=== PATIENT | male | born 1955 | race Hispanic/Latino ===

== ENCOUNTER → 2025-01-30 11:10 | Outpatient (REF) | payer OTHER, SELFPAY | LOC: RAD 11:10 | PROVIDERS: ATTENDING PHYSICIAN Thoracic Surgery (Cardiothoracic Vascular Surgery) | DX: I35.0 Nonrheumatic aortic (valve) stenosis (principal); I25.10 Atherosclerotic heart disease of native coronary artery without angina pectoris; Z01.810 Encounter for preprocedural cardiovascular examination | CPT/HCPCS: 75573; Q9967 ==

== ENCOUNTER 2025-02-04 05:09 | Inpatient (IN) | payer OTHER, SELFPAY ==
[2025-01-28 09:00] VITALS: BMI 32.2
[2025-01-28 09:19] LABS: Hematocrit 44.8 % (39.0-52.0); Hemoglobin 15.1 g/dL (13.0-18.0); Mean Corp Hgb Conc. 33.7 g/dL (33.0-37.0); Mean Corpuscular Volume 90.7 fL (80.0-94.0); Nucleated Red Blood Cells % 0 % (-); Platelet Count 231 10^3/uL (130-400); Red Cell Dist. Width 13.1 % (11.5-14.5)
[2025-01-28 09:25] LABS: Urine Character Clear (Clear)
[2025-01-28 09:30] LABS: INR 0.94; PT 12.9 Sec (11.4-14.6)
[2025-01-28 09:36] LABS: Urine White Cell 0-2 /HPF (0-5)
--- NOTE | 2025-01-28 09:40 | CM ---
Chart reviewed. Met with the patient and his in a PAT. Reviewed preoperative and postoperative instructions and restrictions, along with showering guidelines. Gave patient 2 soaps. Patient is independent of ADLS, lives in a 2nd floor
apartment, [address], 0 DME. Patient is outside of driving radius for CT Transitional RN. Patient will need VN set up at discharge. Plan is for the patient to return home with VN.
[2025-01-28 10:32] LABS: Glycohemoglobin (HgbA1c) 6.0 % (4.0-5.6)
[2025-01-28 11:08] LABS: ALT (SGPT) 33 U/L (0-50); AST (SGOT) 30 U/L (17-59); Albumin 4.7 g/dl (3.5-5.0); Alkaline Phosphatase 109 U/L (38-126); Blood Urea Nitrogen 14 mg/dl (9-20); Calcium 8.9 mg/dl (8.4-10.2); Carbon Dioxide 22 mmol/L (22-30); Chloride 107 mmol/L (98-107); Estimated Creatinine Clearance 78 ml/min; Glucose 227 mg/dl (70-99); Potassium 4.4 mmol/L (3.5-5.1); Sodium 137 mmol/L (135-145); Total Protein 8.1 g/dl (6.3-8.2); eGFR > 60.00
[2025-02-04] VITALS (24 sets, daily range): BP systolic 74–154; BP diastolic 49–93; PULSE 94; BMI 31.7
[2025-02-04] MEDS: LOPRESSOR 25 MG PO (05:46)
[2025-02-04] MEDS: BACTROBAN 2% OINTMENT 1 APPLIC NASAL ×2 (05:46→19:55)
[2025-02-04] MEDS: PROTONIX 40 MG PO (05:46)
[2025-02-04] MEDS: MAGNESIUM OXIDE 500 MG PO (05:46)
--- NOTE | 2025-02-04 06:00 | PTCARENOTE ---
Pt admitted room 2261. Pt confirmed 2 CHG showers at home and NPO status. Weight and VS obtained. ABO drawn and sent. Admission questions completed. Home medications confirmed. Pre op medications administered. Pt oriented to room. Family at the
bedside. Call doshi within reach.
--- NOTE | 2025-02-04 06:03 | W.CVOR.SURPR ---
CVOR Surgeon Immed Pre Op
-
I have examined this patient prior to performance of the scheduled procedure.
The patient's condition is unchanged from the time of the dictated/written History and
Physical and the patient is able to undergo the scheduled procedure.
AVR + CABG + JUAN E
[2025-02-04 07:20] LABS: Urine Character Clear (Clear)
[2025-02-04 07:40] LABS: B.E. - POC -0.5 mmol/L; Glucose - POC 100 mg/dl (70-99); HCO3 - POC 24 mmol/L (21-28); Hematocrit - POC 38 % PCV (42-52); Hemodilution- POC No; Hemoglobin Calculated - POC 13.0; Ionized Calcium - POC 1.19 mmol/L (1.15-1.33); Lactate - POC 0.99 mmol/L (0.36-0.75); O2 Saturation %Calculated-POC 100.0 % (94-98); PCO2 - POC 39 mmHg (35-48); PO2 - POC 360 mmHg (83-108); POC Comment PRE; Potassium - POC 3.9 mmol/L (3.5-5.1); Sodium - POC 142 mmol/L (136-145); Specimen Type - POC Arterial; pH - POC 7.40 (7.35-7.45)
[2025-02-04 07:53] LABS: Urine Squamous Cell 0-2 /LPF (Few)
[2025-02-04 07:55] LABS: Urine Red Blood Cell 0-2 /HPF (0-2); Urine White Cell 0-2 /HPF (0-5)
[2025-02-04 10:05] LABS: B.E. - POC 1.9 mmol/L; Glucose - POC 142 mg/dl (70-99); HCO3 - POC 26 mmol/L (21-28); Hematocrit - POC 29 % PCV (42-52); Hemodilution- POC Yes; Hemoglobin Calculated - POC 9.9; Ionized Calcium - POC 0.95 mmol/L (1.15-1.33); Lactate - POC 2.31 mmol/L (0.36-0.75); O2 Saturation %Calculated-POC 100.0 % (94-98); PCO2 - POC 38 mmHg (35-48); PO2 - POC 353 mmHg (83-108); POC Comment CPB; Potassium - POC 5.8 mmol/L (3.5-5.1); Sodium - POC 140 mmol/L (136-145); Specimen Type - POC Arterial; pH - POC 7.45 (7.35-7.45)
[2025-02-04 10:39] LABS: B.E. - POC 0.9 mmol/L; Glucose - POC 242 mg/dl (70-99); HCO3 - POC 25 mmol/L (21-28); Hematocrit - POC 31 % PCV (42-52); Hemodilution- POC Yes; Hemoglobin Calculated - POC 10.7; Ionized Calcium - POC 1.07 mmol/L (1.15-1.33); Lactate - POC 2.10 mmol/L (0.36-0.75); O2 Saturation %Calculated-POC 99.8 % (94-98); PCO2 - POC 34 mmHg (35-48); PO2 - POC 198 mmHg (83-108); POC Comment CPB; Potassium - POC 5.8 mmol/L (3.5-5.1); Sodium - POC 139 mmol/L (136-145); Specimen Type - POC Arterial; pH - POC 7.46 (7.35-7.45)
--- NOTE | 2025-02-04 10:42 | CM ---
pt in OR today, cm following
[2025-02-04 11:08] LABS: B.E. - POC -2.8 mmol/L; Glucose - POC 208 mg/dl (70-99); HCO3 - POC 23 mmol/L (21-28); Hematocrit - POC 29 % PCV (42-52); Hemodilution- POC Yes; Hemoglobin Calculated - POC 10.0; Ionized Calcium - POC 3.97 mmol/L (1.15-1.33); Lactate - POC 2.96 mmol/L (0.36-0.75); O2 Saturation %Calculated-POC 99.7 % (94-98); PCO2 - POC 44 mmHg (35-48); PO2 - POC 213 mmHg (83-108); POC Comment WARM; Potassium - POC 4.9 mmol/L (3.5-5.1); Sodium - POC 141 mmol/L (136-145); Specimen Type - POC Arterial; pH - POC 7.33 (7.35-7.45)
[2025-02-04 11:22] LABS: B.E. - POC -3.4 mmol/L; Glucose - POC 142 mg/dl (70-99); HCO3 - POC 22 mmol/L (21-28); Hematocrit - POC 33 % PCV (42-52); Hemodilution- POC Yes; Hemoglobin Calculated - POC 11.1; Ionized Calcium - POC 1.29 mmol/L (1.15-1.33); Lactate - POC 3.74 mmol/L (0.36-0.75); O2 Saturation %Calculated-POC 100.0 % (94-98); PCO2 - POC 38 mmHg (35-48); PO2 - POC 442 mmHg (83-108); POC Comment POST; Potassium - POC 3.9 mmol/L (3.5-5.1); Sodium - POC 140 mmol/L (136-145); Specimen Type - POC Arterial; pH - POC 7.36 (7.35-7.45)
--- NOTE | 2025-02-04 11:36 | CON.INTV ---
Consultation
Consultation Request
Date/Time Consultation Requested: 02/04/2025 - 1127
Date/Time Consultation Performed: 02/04/2025 - 1134
Requesting Provider: Dede Ledezma NP
Performing Provider: Dr. Harper
Reason for Consultation: s/p CABG + AVR
Medical History
-
Chief Complaint: CABG + SAVR
History of Present Illness:
69-year-old M former tobacco smoker with PMHx of CAD, severe AV stenosis, GERD, chronic back pain, lumbosacral spondylosis, HLD and migraine headaches who p/w elective CABG + AVR. Pt known to CT surgery service, with last visit on 01/13/[address] Mcdaniel. Pt has known single-vessel CAD and . He has intermittent chest tightness, and feels that his symptoms are worsening compared to about 1 year ago. His echo performed at OSH in September 2024 showed a heavily calcified aortic valve with
LVEF 85%, with reduced AV leaflet excursion, and aortic root calcification. There was no significant AI. Stress test in November 2024 showed abnormal myocardial perfusion suggesting ischemia to the basal lateral wall with EF 75%. LHC on 12/12/2024
showed disease in the LAD although iFR was negative at 0.91. He has significant disease of his mid-circ/OM1 with suspected 99% occlusion. Biological AVR and CABG were reviewed in detail, and the pt agreed to surgical intervention. Today, he
underwent CABG x1, SAVR and JUAN-exclusion with a 40mm clip. He tolerated the procedure well, and was TRX to CVICU post-operatively for further care. Mobile Home Set Up Person service now consulted for additional recommendations/management.
When I saw the pt, he was intubated on SIMV at 12/500/40%/5, PS 5, with PIP [id number], VTe 525mL and breathing at 12 breaths/minute. HR 81, BP via NIBP: 83/49, SpO2 99%, PAP: 28/12, and CO/CI 4.26/2.17, respectively. He has two mediastinal chest
tubes in place. He is currently on insulin gtt at 2.3 units/hr, levophed at 1mcg/min, dobutamine at 2 mcg/kg/min and sedated with precedex at 0.3 mcg/kg/hr.
PMHx: CAD, severe aortic stenosis, lung nodule, vertigo, GERD, chronic back pain, lumbosacral spondylosis with radiculopathy, severe aortic root dilation, HLD, vitamin D deficiency, ophthalmoplegic neuropathy, migraine headaches
PSHx: Lumbar epidural injections, L4-5 discectomy, L4-5 laminectomy with nerve root decompression, cataract removal
Past Medical History
Past Medical History: Other (Above as per HPI)
Past Surgical History: Other (Above as per HPI)
Social History
Tobacco: Former Smoker (Quit >45 years ago)
Alcohol: Occasional (Rare use)
Drug: None
Employment: Employed ([employer])
Family History
Family History: Unable to Obtain
Allergies / Home Medications
Allergies
Allergy/AdvReac Type Severity Reaction Status Date / Time
No Known Allergies Allergy Unverified 01/24/25 12:21
Home Medications
�Medication �Instructions �Recorded �Confirmed �Last Taken �Type
amoxicillin 875 mg tablet 500 mg PO TID 01/24/25 02/04/25 02/02/25 20:00 History
aspirin 81 mg tablet,delayed 81 mg PO DAILY 01/24/25 02/04/25 02/03/25 08:00 History
release
metoprolol succinate 25 mg 25 mg PO DAILY 01/24/25 02/04/25 02/03/25 08:00 History
tablet,extended release 24 hr
omeprazole 20 mg capsule,delayed 20 mg PO DAILY 01/24/25 02/04/25 02/02/25 08:00 History
release
rosuvastatin 40 mg tablet (Crestor) 40 mg PO HS 01/24/25 02/04/25 02/02/25 08:00 History
fluticasone propionate 50 50 mcg intranasal DAILY 02/04/25 02/04/25 02/02/25 08:00 History
mcg/actuation nasal
spray,suspension
ibuprofen 100 mg tablet 100 mg PO PRN PRN pain 02/04/25 02/04/25 02/02/25 20:00 History
Review of Systems
-
Unable to Obtain full review of systems at this time due to: Patient Intubation
Vitals / Labs / Diagnostic Testing
Vital Signs
Temp Pulse Resp BP Pulse Ox
97.6 F 81 18 148/93 98
02/04/25 05:44 02/04/25 05:44 02/04/25 05:44 02/04/25 05:17 02/04/25 05:44
Diagnostic Testing:
Physical Exam
-
HEENT: Normocephalic, Anicteric and Other (ETT in place)
Cardiovascular: S1/S2 and Peripheral Edema (negative)
Respiratory: Wheeze (negative), Rales (negative), Rhonchi (negative), Non-Labored Respirations and Other (mechanical breath sounds heard bilaterally)
GI: Soft, Non Distended, Non Tender and Normal Bowel Sounds
Neurology: Tremors (negative) and Other (sedated)
Skin: Warm and Dry
General: Respiratory Distress (negative), Comfortable, Fever (negative) and Chills (negative)
Assessment
-
Assessment: 69-year-old M with PMHx of CAD, severe AV stenosis, GERD, chronic back pain, lumbosacral spondylosis, HLD and migraine headaches who p/w elective CABG + AVR. Pt known to CT surgery service, with last visit on 01/13/[address] Mcdaniel.
Pt has known single-vessel CAD and . He has intermittent chest tightness, and feels that his symptoms are worsening compared to about 1 year ago. His echo performed at OSH in September 2024 showed a heavily calcified aortic valve with LVEF 85%, with
reduced AV leaflet excursion, and aortic root calcification. There was no significant AI. Stress test in November 2024 showed abnormal myocardial perfusion suggesting ischemia to the basal lateral wall with EF 75%. C on 12/12/2024 showed disease in
the LAD although iFR was negative at 0.91. He has significant disease of his mid-circ/OM1 with suspected 99% occlusion. Biological AVR and CABG were reviewed in detail, and the pt agreed to surgical intervention. On 02/04/2025, he underwent CABG
x1, SAVR and JUAN-exclusion with a 40mm clip. He tolerated the procedure well, and was TRX to CVICU post-operatively for further care. Mobile Home Set Up Person service now consulted for additional recommendations/management.
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
Impression:
#Single-vessel CAD involving mid-LCx/OM1 s/p CABG x1 (Ao to RSVG to OM) - POD#0
#Severe aortic valve stenosis s/p bioprosthetic AVR (29mm) - POD#0
#Anemia
#Transaminitis (AST mildly elevated)
#Lactic acidosis
#Bicuspid aortic valve morphology, type I with fused right left coronary cusp
#Positional vertigo
#GERD
#HLD
#HTN
#Former tobacco smoker (quit >45 years ago)
Plan:
Ventilator settings reviewed
FiO2 will be weaned to maintain SpO2 >90-94%
Minute ventilation will be adjusted
Arterial blood gases will be monitored
Spontaneous breathing trial will be attempted with hopeful extubation after anesthesia/sedation wear off
prn nebulized bronchodilators - not currently bronchospastic
Pulmonary artery catheter parameters will be followed
Pressors/antihypertensive/inotropes/diuretics will be provided as needed
Maintain MAP>65
Replete electrolytes with K>4, Mg>2
Monitor chest tube output (mediastinal chest tubes x2)
Monitor hemoglobin
Monitor platelet count and coags
Transfuse blood products as needed to maintain Hb>7g/dL, plt>50k (given post-operative status)
CT surgery managing chest tubes
Monitor blood sugar to maintain euglycemia with goal BG 110-140
Insulin drip per protocol
Aspiration precautions
VAP prevention protocol
DVT prophylaxis
Early nutrition
Early mobilization
Critical care statement: A total of 46 minutes of critical care time was provided for this patient today. This includes management of ventilator, spontaneous breathing trial, arterial blood gases, pressors, of unstable vital signs, evaluation of the
patient at bedside, reviewing the patient's pertinent medical records including radiographs, microbiology, laboratory evaluations, and discussion with primary team and critical care nursing.
[2025-02-04 11:52] LABS: B.E. - POC -3.5 mmol/L; Glucose - POC 124 mg/dl (70-99); HCO3 - POC 23 mmol/L (21-28); Hematocrit - POC 32 % PCV (42-52); Hemodilution- POC Yes; Hemoglobin Calculated - POC 11.0; Ionized Calcium - POC 1.28 mmol/L (1.15-1.33); Lactate - POC 4.09 mmol/L (0.36-0.75); O2 Saturation %Calculated-POC 59.5 % (94-98); PCO2 - POC 43 mmHg (35-48); PO2 - POC 34 mmHg (83-108); Potassium - POC 3.9 mmol/L (3.5-5.1); Sodium - POC 140 mmol/L (136-145); Specimen Type - POC Venous; pH - POC 7.32 (7.35-7.45)
--- NOTE | 2025-02-04 11:54 | W.PN.CT.SURG ---
CT Surgery Operative Note
-
CARDIAC SURGERY OPERATIVE REPORT
Preoperative Diagnosis: Aortic valve stenosis with single-vessel coronary disease, symptomatic
Postoperative Diagnosis: Same
Procedure(s) Performed:
1. Sternotomy with standard aortic and right atrial cannulation
2. Coronary artery bypass grafting x 1 (Ao to RSVG to OM)
3. Surgical aortic valve replacement [29 mm bioprosthesis]
4. Left atrial appendage exclusion [40 mm clip]
5. Trans-esophageal echocardiography
6. Placement temporary ventricular pacing wires
Date of Surgery: 02/04/2025
Comorbidities:
1. Severe aortic valve stenosis, symptomatic
2. Bicuspid aortic valve morphology, type I with fused right left coronary cusp
3. Single-vessel coronary disease with essentially a MIXING PICKER TENDER of the large OM branch with left to left and right to left collateralization
4. Positional vertigo
5. Exertional and resting angina
6. GERD
7. Hyperlipidemia
8. Hypertension
Attending Surgeon: Gal Mcdaniel MD, MS
Assistants: Josselyn Chinchilla PA-C (present and necessary to post production assistant, retraction, suction, exposure, suture management, and wound closure under my direction), Asif Quintana, PGY 2 (Cardiac Surgery Resident), SHIRIN Enrique (endo radial artery evaluation
and endo vein harvest)
Anesthesiology: Hari Aparicio MD and Razia Chand CRNA
Scrub and Circulating RNs: Sammy Card RN, Janki Burroughs RN
Tobacco Cloth Reclaimer: James Dent CCP
Anesthesia: GETA
EBL: per perfusion records
Products: None
CPB Time: 98 minutes
Aortic Cross Clamp Time: 77 minutes
Indication(s) for Procedures: This is a 69-year-old male who is relatively active who has been experiencing intermittent chest tightness. He has known severe aortic valve stenosis and also had single-vessel coronary artery disease with a perfusion
deficit on imaging. Given his young age, bicuspid morphology and single-vessel coronary disease, he was offered surgical revascularization as well as surgical aortic valve replacement.
Aortic Valve Description: Type I morphology, fused left right. Heavy calcified commissure at the right non-, heavy calcification with infiltration into the annulus particular towards the noncoronary cusp. Left and right coronary ostia normal
anatomic positions.
Conduit(s) Quality:
RSVG -excellent/good quality, uniform mildly thickened no varicosities
Target(s) Quality:
OM -shows the largest OM branch heading towards the apex, there is good filling of the branching vessels supplying the lateral wall/test dosing antegrade had a mean flow 45 cc a minute at a pressure of 80 mmHg.
Findings: LVEF on intraoperative FRANCHESKA was 60% and 60% post procedure with no new regional wall motion abnormality. There was no prosthetic PVL or AI. Mean gradient across the prosthesis was 3 mmHg. Following bypass grafting, test dose cardioplegia
was given down the distal and confirmed patency and hemostasis. His aortic valve was heavily calcified particularly towards the nondominant coronary cusp at the left noncommissure with large bulky calcification at the right noncommissure. He had a
type I Hellen classification bicuspid aortic valve with fusion of the left and right coronary cusp. His left and right coronary ostia within normal anatomic positions. The valve was debrided and a total of 14 nonpledgeted 2 Ethibond sutures were
placed from LVOT through annulus through sewing cuff of the three 9 mm bioprosthesis. This was then secured to place using core knots. His left atrial appendage was verified to be free of any thrombus or debris preoperatively and found to be
totally occlusive postoperatively with a 40 mm clip. After taken off the clamp and coming off cardiopulmonary bypass the mean gradient across the valve was only 3 and no paravalvular leak was seen. He had a mild to moderate degree of mitral valve
insufficiency while ventricularly paced and after coming off cardiopulmonary bypass. This later improved to trace to mild which was his baseline. He was placed preemptively on a low-dose amount of dobutamine, did not require any blood products,
and he returned to his eagle sinus rhythm after short period of ventricular pacing. Of note, we did do a small cut down on the radial artery and placed the endoscope inside the radial artery had diffuse calcification running up the anterior wall
and so I felt it was not suitable for bypass grafting. This I was also instrumented in the past for his left heart cath. His left radial artery had likely an incomplete arch and so we did not use that either.
Specimen(s): Aortic valve leaflet.
Prosthesis:
1. 40 mm clip AtriCure, serial #[id number]
2. 29 mm [employer]'s Resilia aortic valve bioprosthesis, serial #[id number]
Description of Procedure: The patient was taken to the operating room. Their identity and procedure to be performed were verified and they were positioned supine on the operating table. Induction via general anesthesia with endotracheal intubation
was performed and central venous access and arterial monitoring were inserted. A preoperative transesophageal echocardiogram was performed. The patient was then prepped and draped from chin to feet in a sterile fashion. A preoperative time-out was
performed with all members of the team present. We started with Endo access to the right radial artery. It was found to be not usable and so this was aborted, the incision was closed, the arm was then retucked. A midline chest incision was
performed along with median sternotomy. Simultaneous endoscopic access of the right lower extremity for saphenous vein harvest was obtained along with administration of an initial 5,000 units of IV heparin. The innominate vein was isolated. Full
heparinization was given (a total of 55,000 units). I created a pericardial well. The aortic cannulation site was chosen where it was soft, pliable, and free of calcium. Cannulation was performed with an arterial cannula in the ascending aorta and a
triple-stage venous cannula through the right atrial appendage. The arterial cannula line had an appropriate bounce and correlating pressures with test dosing. Next, a root vent/antegrade cannula was inserted into the ascending aorta. The ACT was
confirmed to be over 400 and retrograde autologous priming was performed before commencing cardiopulmonary bypass. The pulmonary artery was away from the aorta to facilitate a clamp site. The aortic cross-clamp was placed after decreasing
the flow on the bypass and mean arterial pressure. A total of 1.2L initial dose of antegrade Del-Nido cardioplegia solution was given and planned for re-dosing every 75 minutes as necessary. There was rapid electro-mechanical arrest of the heart at
300 cc of cardioplegia. The left ventricle was observed for distention on echocardiogram and manual palpation. Cold slush was placed into a sponge and topically on the RV while we systemically cooled to 34 degrees centigrade. Once the heart was
fully rested he was rotated medially and the left atrial appendage was clipped flush to the base with a 40 mm device.
I positioned the heart to expose the OM target. A chinik blade was used to expose the coronary and perform the arteriotomy. Coronary Bueno scissors were used to enlarge the incision. The saphenous vein was trimmed and beveled to an appropriate size.
The distal anastomosis was performed using 7-0 prolene in an end-to-side fashion. Antegrade cardioplegia was administered into the graft. Appropriate hemostasis and flow were confirmed. The graft was measured for length to the aorta and cut.
Carbon dioxide was used to flood the field. I turned my attention to the aortic valve and manually identified the location of the right coronary take off. An aortotomy was made approximately 1.5cm above the sinotubular junction. The location of both
left and right coronary vessels were visualized in the root. The aortic valve was inspected and found to be heavily calcified. The leaflets were excised and sent for pathological assessment. The annulus was debrided of any calcium. The root and left
ventricular outflow tract were thoroughly irrigated to remove any debris. A total of 14, non-pledgeted 2-0 ethibond annular sutures were placed [id number] circumferentially. These were brought through the sewing cuff of the prosthetic valve which
as then parachuted into place. The left and right coronary ostia were visualized and were unobstructed by the valve. A Cor-Knot device was used to secure the annular sutures. The valve was inspected and was well seated. The aortotomy was
approximated with 4-0 prolene in two layers. I created one aortotomy using a #11 blade then a 4.0mm aortic punch above the aortic suture line. The proximal anastomoses were created in an end-to-side fashion using 6-0 prolene. At the same time, we
started to re-warm to 36.5 degrees centigrade. Temproary bipolar ventricular pacing wires were placed on the base of the right ventricle. The patient was placed in a Trendelenburg position and flows on bypass were lowered. The aortic cross clamp was
removed and flows were slowly brought back up. The aortotomy appeared hemostatic after placement of a few pledgeted 4-0 Prolene repair sutures. The distal and proximal anastomoses appeared hemostatic. De-airing maneuvers were performed.
Transesophageal echocardiography revealed no paravalvular leak and appropriate prosthetic function. Once de-airing was satisfactory, the left ventricular and root vents were removed. After verifying acceptable parameters, we initiated weaning from
cardiopulmonary bypass. Once we were off cardiopulmonary bypass, the venous cannulas was clamped and removed. A test dose of protamine was administered and the patient was monitored for any adverse reaction before resuming protamine. Once half of
the protamine dose was delivered, pump suckers were turned off and the systolic blood pressure was lowered for aortic decannulation. The aortic cannula was removed and pursestrings were tied down. All cannulation sites were oversewn with a 4-0
prolene. The aortic line, proximal, and distal coronary anastomoses were hemostatic. The mammary bed was inspected and hemostasis was confirmed. Once the mediastinum was hemostatic, two 24Fr Jeanmarie drains were placed within the pericardium. The
sternum was approximated with 4#7 single and 3 #8 double stainless steel wires. Fascia was approximated with #1 vicryl suture. The subcutaneous, dermis and epidermis were closed in layers in a running fashion. The skin wound was cleansed and
dressed.
All instrument, sponge, and needle counts were confirmed to be correct x 2 at the end of the operation. The patient was transferred to the cardiac intensive care unit in critical but stable condition.
I, Dr. Gal Mcdaniel, was present, scrubbed for, and performed all critical elements of this procedure.
Gal Mcdaniel MD, MS
Cardiothoracic Surgeon
[facility]
This operative dictation was created using the [employer] dictation system. Please excuse any grammatical, typographical, or 'sound alike' errors
--- NOTE | 2025-02-04 12:15 | PTCARENOTE ---
recieved pt from CVOR at 1215 s/p CABG AVR. pt laying flat in bed, intubated sedated pupils equal and reactive, non responsive to stimuli so far. NSR hr 80s-90s. BP 100/50 - goal systolics 90-[address] Mcdaniel. PAps 20s/10s, CVP ~ 10. C.I 2.07, SVR
1900. V wire present to box at 60,10. no pacing noted so far. Lungs clear, diminished on ventilator SIMV 12, 500, 5/5 40 percent pulling good volumes.2 mediastinal chest tubes to wall suction no air leak, tidaling or crepitus noted. suctioned for
thin clear secretions. bs hypoactive. veras present draining clear yellow urine. Sternum GRINDING OPERATOR w glue, R radial GRINDING OPERATOR w glue, R SVG inscision and puncture GRINDING OPERATOR with glue, covered with sheyal wrap . R IJ cordis with swan at 45 L radial a line, R ac PIV all
central lines zeroed, flushed, maintained. recieved on insulin per protocol, levo at 2, dobut at 3.
[2025-02-04 12:24] LABS: Glucose - Point of Care 116 mg/dl (70-99)
[2025-02-04] MEDS: LR 250 ML IV ×2 (12:27→13:43)
[2025-02-04] MEDS: ANCEF 10 IV ×2 (12:41→12:42)
[2025-02-04] MEDS: NSS 500 IV (12:42)
[2025-02-04] MEDS: NOVOLOG FLEXPEN SC ×2 (12:43→15:04)
[2025-02-04 12:45] LABS: B.E. -4.3 mmol/L; HCO3 21.6 mmol/L (21-28); O2 Saturation % 98.6 % (94-98); PCO2 42 mmHg (35-48); PO2 126 mmHg (83-108); Potassium 3.8 mMOL/L (3.5-5.1); Sodium 136 mMOL/L (136-145)
[2025-02-04 12:49] LABS: Hematocrit 34.1 % (39.0-52.0); Hemoglobin 11.5 g/dL (13.0-18.0); Platelet Count 162 10^3/uL (130-400)
[2025-02-04] MEDS: KCL 50 IV (12:51)
[2025-02-04 12:55] LABS: INR 1.38; PT 17.2 Sec (11.4-14.6)
[2025-02-04 12:56] LABS: APTT 37.8 Sec (23.4-35.0)
[2025-02-04 12:58] LABS: Blood Urea Nitrogen 16 mg/dl (9-20); Estimated Creatinine Clearance 78 ml/min; Glucose 114 mg/dl (70-99); Magnesium 2.9 mg/dl (1.6-2.3)
[2025-02-04 13:08] LABS: Glucose - Point of Care 150 mg/dl (70-99)
--- NOTE | 2025-02-04 13:23 | PTCARENOTE ---
CTs oozy with 105 out the first hour, ctnps aware, will give ddavp. 250 fluid given. ACT done 136. dobut lowered to 2 per [address]NP
[2025-02-04] MEDS: DDAVP 56 MCG IV (13:49)
[2025-02-04 13:57] LABS: Glucose - Point of Care 116 mg/dl (70-99)
[2025-02-04 14:30] LABS: ACT+ - POC 501 Seconds (82-134)
[2025-02-04 14:30] LABS: ACT+ - POC 562 Seconds (82-134)
[2025-02-04 14:30] LABS: ACT+ - POC 815 Seconds (82-134)
[2025-02-04 14:30] LABS: ACT+ - POC 120 Seconds (82-134)
[2025-02-04 14:30] LABS: ACT+ - POC 720 Seconds (82-134)
[2025-02-04 14:30] LABS: ACT+ - POC 131 Seconds (82-134)
[2025-02-04 15:00] LABS: Glucose - Point of Care 118 mg/dl (70-99)
[2025-02-04] MEDS: PACERONE PO (15:04)
[2025-02-04] MEDS: NEURONTIN PO (15:04)
--- NOTE | 2025-02-04 15:34 | PTCARENOTE ---
pt awake and following commands, CPAP trial initiated at 1530. Pt c/o pain, offirmev ordered and given
[2025-02-04] MEDS: DILAUDID 0.5 MG IV (15:35)
[2025-02-04 16:04] LABS: Glucose - Point of Care 103 mg/dl (70-99)
[2025-02-04 16:38] LABS: B.E. -1.7 mmol/L; HCO3 23.7 mmol/L (21-28); O2 Saturation % 98.8 % (94-98); PCO2 42 mmHg (35-48); PO2 125 mmHg (83-108); Potassium 4.8 mMOL/L (3.5-5.1); Sodium 135 mMOL/L (136-145)
[2025-02-04 16:38] LABS: Hematocrit 32.2 % (39.0-52.0); Hemoglobin 11.2 g/dL (13.0-18.0); Platelet Count 154 10^3/uL (130-400)
[2025-02-04] MEDS: CALCIUM GLUCONATE 100 IV (16:45)
--- NOTE | 2025-02-04 16:56 | PTCARENOTE ---
patient recieved a bolus of 400 mcgs of precedex IV. CTNPs and Pharmacy notified, Monitored the patient closely for hemodynamic instability. BP did reach 200s systolically and came back down over the course of ~ 10 minutes to 110s. Labs drawn and
sent. pt will stay intubated for now on CPAP settings per ctnp
[2025-02-04 16:58] LABS: ALT (SGPT) 36 U/L (0-50); AST (SGOT) 80 U/L (17-59); Albumin 3.2 g/dl (3.5-5.0); Alkaline Phosphatase 71 U/L (38-126); Total Protein 5.7 g/dl (6.3-8.2)
[2025-02-04 17:02] LABS: Glucose - Point of Care 105 mg/dl (70-99)
[2025-02-04] MEDS: ANCEF 5 IV (17:29)
[2025-02-04] MEDS: OFIRMEV 100 IV (17:41)
[2025-02-04] MEDS: ASPIRIN 300 MG RECTAL (17:48)
[2025-02-04 18:01] LABS: B.E. -3.7 mmol/L; HCO3 22.1 mmol/L (21-28); O2 Saturation % 99.2 % (94-98); PCO2 42 mmHg (35-48); PO2 136 mmHg (83-108); Potassium 4.6 mMOL/L (3.5-5.1); Sodium 136 mMOL/L (136-145)
--- NOTE | 2025-02-04 18:12 | PTCARENOTE ---
patient awake and following commands, CPAP gas sent and looks good , CTNP says good to extubate.
--- NOTE | 2025-02-04 18:20 | PTCARENOTE ---
pt extubated to 6L NC, satting 98 %. able to state name and birthday. family at bedside
[2025-02-04 18:59] LABS: Glucose - Point of Care 100 mg/dl (70-99)
[2025-02-04 19:28] LABS: ACT-LR - POC 136 Seconds (116-155)
[2025-02-04] MEDS: SENOKOT-S 1 TABLET PO (19:55)
--- NOTE | 2025-02-04 20:00 | PTCARENOTE ---
assumed care of patient at 1900. Patient alert and oriented, denies pain, on 1 of levo, and 3 dobutamine. NSR on monitor, +pulses, lungs clear and diminished bilateral, CT dressing clean dry and intact. +BS, veras draining cleat yellow.
[2025-02-04] MEDS: SODIUM BICARBONATE 50 MEQ IV (20:46)
[2025-02-04 20:59] LABS: Glucose - Point of Care 121 mg/dl (70-99)
[2025-02-04] MEDS: PACERONE 200 MG PO (22:18)
[2025-02-04] MEDS: TYLENOL 1000 MG PO (22:18)
[2025-02-04] MEDS: CRESTOR 40 MG PO (22:19)
[2025-02-04 23:03] LABS: Glucose - Point of Care 101 mg/dl (70-99)
[2025-02-04] MEDS: ROXICODONE 5 MG PO (23:08)
[2025-02-04] MEDS: DILAUDID 0.25 MG IV (23:20)
[2025-02-05] VITALS (39 sets, daily range): BP systolic 93–132; BP diastolic 55–86; PULSE 103; O2SAT 95–98; BMI 32.6
[2025-02-05 01:02] LABS: Glucose - Point of Care 106 mg/dl (70-99)
--- NOTE | 2025-02-05 01:10 | PTCARENOTE ---
patient resting comfortably, oral care completed, and CHG bath done. Patient able to turn self in bed.pain controlled with PRN medication. VSS
[2025-02-05] MEDS: ANCEF 5 IV ×2 (02:01→09:59)
[2025-02-05] MEDS: FLEXERIL 5 MG PO ×2 (02:06→15:45)
[2025-02-05] MEDS: ZOFRAN 4 MG IV (02:11)
[2025-02-05] MEDS: DILAUDID 0.25 MG IV ×4 (02:17→14:06)
[2025-02-05 03:03] LABS: Glucose - Point of Care 109 mg/dl (70-99)
[2025-02-05 03:34] LABS: Hematocrit 29.6 % (39.0-52.0); Hemoglobin 9.9 g/dL (13.0-18.0); Mean Corp Hgb Conc. 33.4 g/dL (33.0-37.0); Mean Corpuscular Volume 90.2 fL (80.0-94.0); Platelet Count 137 10^3/uL (130-400); Red Cell Dist. Width 13.1 % (11.5-14.5)
[2025-02-05 03:59] LABS: Blood Urea Nitrogen 17 mg/dl (9-20); Calcium 7.9 mg/dl (8.4-10.2); Carbon Dioxide 27 mmol/L (22-30); Chloride 108 mmol/L (98-107); Estimated Creatinine Clearance 78 ml/min; Glucose 116 mg/dl (70-99); Magnesium 2.2 mg/dl (1.6-2.3); Potassium 4.2 mmol/L (3.5-5.1); Sodium 137 mmol/L (135-145); eGFR > 60.00
--- NOTE | 2025-02-05 04:15 | PTCARENOTE ---
Patient VSS, NSR, Dubutimine @2.5 +pulses, lungs clear diminished. Pain controlled with PRN medication and repositioning.
[2025-02-05] MEDS: ROXICODONE 5 MG PO ×4 (04:44→23:08)
--- NOTE | 2025-02-05 04:44 | W.PN.CT ---
Today's Communication / Plan
-
Plan:
-No major issues overnight. Hemodynamically and neurologically intact
-Successfully extubated yesterday 02/04 @ 1800
-Weaned off Levophed overnight, Dobutamine weaned from 3 to 1.5 overnight, on insulin gtt per protocol
-Last CI 2.49, MVO2 66.1, U/O since OR 1200 mL
-Monitor chest tube drainage: 2meds 230/540
-BB on hold given postop hypotension and need for Dobutamine
-Cont. current meds (ASA, Plavix, Crestor, Amiodarone; Lopressor on hold)
-D/C a-line and swan when able to wean off inotropic support
-Keep veras for accurate I/O's
-Telemetry phase today when of dobutamine and insulin gtt
-Maintain cordis
-Maintain temporary PW (will likely pull tomorrow)
-Encourage use of IS
-Wean off of O2 as tolerated
-OOB into chair
Assessment / Plan
-
Assessment:
-S/P Sternotomy/CABG x 1 (Ao to RSVG to OM)/Aortic valve replacement [29 mm bioprosthesis]/JUAN clip (40 mm), by Dr. Mcdaniel, 02/04/25 pod#1
-Severe aortic valve stenosis, symptomatic
-Mild MR
-Mild TR
-LVEF 60-65%
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
-Single-vessel coronary disease with essentially a BARBER SHOP MANAGER of the large OM branch with left to left and right to left collateralization
-Positional vertigo
-Exertional and resting angina
-GERD
-Hyperlipidemia
-Hypertension
-Class 1 obesity (BMI 31.6)
-Prediabetes (hgA1C 6.0)
-Former tobacco use (quit 45 yrs ago)
-Ophthalmoplegic neuropathy
-Migraine headaches
-Vitamin D deficiency
-Chronic back pain
-Lumbosacral spondylosis with radiculopathy
-S/P L4/L5 discectomy and laminectomy
-S/P Lumbar epidural injections
-S/P Cataract surgery
-Acute postop blood loss/Anemia (stable without transfusion)
-Acute postop coagulopathy (DDAVP)
-Acute postop atelectasis
-Acute postop hypovolemia with subsequent hypervolemia
Discussed patient care with: Cardiology, Nursing, Respiratory Therapy, Pharmacy and Care Team
Subjective
Procedure
S/P Sternotomy/CABG x 1 (Ao to RSVG to OM)/Aortic valve replacement [29 mm bioprosthesis]/JUAN clip (40 mm), by Dr. Mcdaniel, 02/04/25
-
Date of Service: February 05, 2025
Pt c/o pleuritic chest pain, otherwise feels well
Objective Data
-
Lab Results
02/05/25 03:20
02/05/25 03:20
PT 17.2 Sec (11.4-14.6) H 02/04/25 12:25
INR 1.38 02/04/25 12:25
APTT 37.8 Sec (23.4-35.0) H 02/04/25 12:25
Vital Signs
Vital Signs
Temp Pulse Resp BP Pulse Ox
99.2 F 103 18 98/60 96
02/05/25 04:00 02/05/25 04:27 02/05/25 04:27 02/05/25 04:00 02/05/25 04:27
CT Intake/Output/Weight
02/04/25 02/04/25 02/05/25
06:59 18:59 06:59
Intake Total 501.2 / 1277.1 775.9 / 1277.1
Output Total 840 / 1685 845 / 1685
Balance -338.8 / -407.9 -69.1 / -407.9
SaO2: 96 (RA)
Physical Exam
-
General: Awake, Oriented and AOx3
Cardiovascular: Regular rate & rhythm, No Murmurs, No Rub and No Gallop
Respiratory: Decreased Breath Sounds (at bases, otherwise feels well)
Sternum: Stable
Incision: Clean, Dry, Intact and Dressing Intact
Extremities: Other (+trace edema)
Data Reviewed
-
Lab Results: Results Reviewed
Medications: Active Meds Reviewed
Chest X-Ray: Report Reviewed and Image Reviewed
ECG: Report Reviewed and Image Reviewed
[2025-02-05 04:54] LABS: Glucose - Point of Care 93 mg/dl (70-99)
[2025-02-05] MEDS: TYLENOL 1000 MG PO ×3 (05:32→21:13)
--- NOTE | 2025-02-05 05:54 | PTCARENOTE ---
patient Alert and Oriented, +pulses, +BS, pain at sternal site 8-10 control with PRN medication. He is on 2 L NC O2 Saturation 95%, normal Sinus rhythm, , Dobutamine at 1.5, V Wires- pacer setting 60/10/0.8, CT X 2, veras and Cordis . Insulin
gtt, check q 2hrs.
[2025-02-05 06:46] LABS: Glucose - Point of Care 128 mg/dl (70-99)
--- NOTE | 2025-02-05 08:00 | PTCARENOTE ---
pt received from previous RN, oriented, in bed. SR/ST on the monitor, HR 90-100s. V wire in place, VVI 60/10. SBP 120-130s. PAP 20s/10s. CVP ~4. CI>2, Dobutamine gtt running as ordered. palpable pulses. pt on 2LNC, 94-95% POX. lungs diminished. IS
encouraged, 750-1000ml. CTx2, no air leak or crepitus noted. pt abdomen s/n, denies n/v. clears tolerated well. hypoactive BS. Riley in place, clear yellow urine. sternal incision KIANA, approximated. chest tube site c/d/i. 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 RLE
FRIDA bandage in place. RIJ cordis/swan maintained. L radial Nina flushed, zeroed, and calibrated. PIV. insulin gtt running as ordered. see worklist for VS, I&O, and assessment.
--- NOTE | 2025-02-05 08:23 | W.PN.INTV ---
Today's Communication / Plan
Recommendations
Up OOB as tolerated
Continue insulin drip per protocol, goal BG 110�140
Wean down supplemental O2 flow rate, maintaining SpO2 >90-94%
Encourage incentive spirometer
Pain control
Cardiac rehab
Electronics Recycler services will continue to follow along until patient transferred to CVICU�telemetry status. Once downgraded then we will sign off at that time.
Assessment
-
Assessment: 69-year-old M with PMHx of CAD, severe AV stenosis, GERD, chronic back pain, lumbosacral spondylosis, HLD and migraine headaches who p/w elective CABG + AVR. Pt known to CT surgery service, with last visit on 01/13/[address] Mcdaniel.
Pt has known single-vessel CAD and . He has intermittent chest tightness, and feels that his symptoms are worsening compared to about 1 year ago. His echo performed at OSH in September 2024 showed a heavily calcified aortic valve with LVEF 85%, with
reduced AV leaflet excursion, and aortic root calcification. There was no significant AI. Stress test in November 2024 showed abnormal myocardial perfusion suggesting ischemia to the basal lateral wall with EF 75%. LHC on 12/12/2024 showed disease in
the LAD although iFR was negative at 0.91. He has significant disease of his mid-circ/OM1 with suspected 99% occlusion. Biological AVR and CABG were reviewed in detail, and the pt agreed to surgical intervention. On 02/04/2025, he underwent CABG
x1, SAVR and JUAN-exclusion with a 40mm clip. He tolerated the procedure well, and was TRX to CVICU post-operatively for further care. Electronics Recycler service now consulted for additional recommendations/management.
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
Impression:
#Single-vessel CAD involving mid-LCx/OM1 s/p CABG x1 (Ao to RSVG to OM) - POD#1
#Severe aortic valve stenosis s/p bioprosthetic AVR (29mm) - POD#1
#Anemia
#Transaminitis (AST mildly elevated)
#Lactic acidosis
#Bicuspid aortic valve morphology, type I with fused right left coronary cusp
#Positional vertigo
#GERD
#HLD
#HTN
#Former tobacco smoker (quit >45 years ago)
Plan:
Successfully extubated yesterday, and is currently saturating 97% on 2 L/min nasal cannula
Continue weaning down supplemental O2 flow rate well-maintaining SpO2 >90-94%
prn nebulized bronchodilators - not currently bronchospastic
IS encouraged q1hr while awake
Pulmonary artery catheter parameters will be followed
Pressors/antihypertensive/inotropes/diuretics will be provided as needed
Maintain MAP>65
Replete electrolytes with K>4, Mg>2
Monitor chest tube output (mediastinal chest tubes x2)
Monitor hemoglobin
Monitor platelet count and coags
Transfuse blood products as needed to maintain Hb>7g/dL, plt>50k (given post-operative status)
CT surgery managing chest tubes
Monitor blood sugar to maintain euglycemia with goal BG 110-140
Insulin drip per protocol
Aspiration precautions
DVT prophylaxis
Early nutrition
Early mobilization
Electronics Recycler services will continue to follow along until patient transferred to CVICU�telemetry status. Once downgraded then we will sign off at that time.
Critical care statement: A total of 41 minutes of critical care time was provided for this patient today. This includes management of ventilator, spontaneous breathing trial, arterial blood gases, pressors, of unstable vital signs, evaluation of the
patient at bedside, reviewing the patient's pertinent medical records including radiographs, microbiology, laboratory evaluations, and discussion with primary team and critical care nursing.
Subjective Dataa
Subjective Data
Date of Service:
Date of Service: February 05, 2025
Chief Complaint: Electronics Recycler Follow Up
Subjective:
Patient seen and evaluated this morning. Afebrile overnight. Currently on 1.3 units/h of insulin. Also on dobutamine drip at 1 mcg/kg/min. Cardene drip + Levophed drip off since yesterday. Currently on 2 L/min nasal cannula saturating 97%,
heart rate 98 and BP 120/68.
Review of Systems
General: Other (Negative unless mentioned above)
Objective Data
Data Reviewed
Vital Signs / I&O / Oxygen:
Vital Signs
Temp Pulse Resp BP Pulse Ox
99.3 F 100 19 132/72 95
02/05/25 09:00 02/05/25 09:00 02/05/25 09:00 02/05/25 09:00 02/05/25 09:00
Intake and Output
02/04/25 02/05/25 02/06/25
06:59 06:59 06:59
Intake Total 1463.6 / 1463.6 50.4 / 50.4
Output Total 1770 / 1770 150 / 150
Balance -306.4 / -306.4 -99.6 / -99.6
SaO2 [SIMV] 97
SaO2 95
Nasal Cannula flow liters per 2
minute
Physical Exam
General: Respiratory Distress (negative), Comfortable, Chills (negative) and Sweats (negative)
HEENT: Normocephalic and Anicteric
Cardiovascular: S1-S2 and Peripheral Edema (negative)
Respiratory: Wheeze (negative), Crackles (negative), Rhonchi (negative), Non-Labored Respirations, Stridor (negative) and Chest Tube (Mediastinal chest tubes x 2)
GI: Soft, Non Distended, Non Tender and Normal Bowel Sounds
Neurology: Awake, Alert and Tremors (negative)
Skin: Warm, Dry, Cyanosis (negative) and Jaundice (negative)
Labs/Micro/Reports
Lab Data
02/05/25 03:20
02/05/25 03:20
Laboratory Results
02/04/25 02/04/25 02/04/25
12:25 12:29 16:28
PT 17.2 H
INR 1.38
APTT 37.8 H
pH 7.32 L 7.36
pCO2 42 42
pO2 126 H 125 H
HCO3 21.6 23.7
O2 Delivery Level
02/04/25
17:55
PT
INR
APTT
pH 7.33 L
pCO2 42
pO2 136 H
HCO3 22.1
O2 Delivery Level
[2025-02-05] MEDS: NOVOLOG FLEXPEN SC ×2 (08:36→13:31)
[2025-02-05] MEDS: LIDOCAINE 4% PATCH 1 PATCH TOPICAL (08:46)
[2025-02-05] MEDS: PROTONIX 40 MG PO (08:47)
[2025-02-05] MEDS: LOW STRENGTH ASPIRIN 81 MG PO (08:47)
[2025-02-05] MEDS: PLAVIX 75 MG PO (08:47)
[2025-02-05] MEDS: PACERONE 200 MG PO ×3 (08:47→21:13)
[2025-02-05] MEDS: MAGNESIUM OXIDE 500 MG PO ×2 (08:47→21:12)
[2025-02-05] MEDS: SENOKOT-S 1 TABLET PO ×2 (08:47→21:12)
[2025-02-05] MEDS: BACTROBAN 2% OINTMENT 1 APPLIC NASAL ×2 (08:48→21:12)
[2025-02-05 08:59] LABS: Glucose - Point of Care 101 mg/dl (70-99)
[2025-02-05] MEDS: NSS IV (09:41)
--- NOTE | 2025-02-05 10:26 | W.PN.CD ---
Today's Communication / Plan
-
postop care
continue
Impression / Plan
-
69-year-old man with aortic valve stenosis and single-vessel coronary artery disease who presents for elective CABG and aortic valve replacement.
Severe aortic stenosis, s/p AVR
- S/P Sternotomy/CABG x 1 (Ao to RSVG to OM)/Aortic valve replacement [29 mm bioprosthesis]/JUAN clip (40 mm), by Dr. Mcdaniel, 02/04/25
- Doing well after surgery.
- Continue routine postoperative care
Coronary artery disease s/p CABG
- CABG x 1 (Ao to RSVG to OM)
- Continue aspirin, clopidogrel, and statin
- Add beta-mars once off of dobutamine
LUE swelling
- Not painful. Continue to monitor.
Physical Exam
Vital Signs/Labs
Vital Signs
Temp Pulse Resp BP Pulse Ox
99.3 F 100 19 132/72 95
02/05/25 09:00 02/05/25 09:00 02/05/25 09:00 02/05/25 09:00 02/05/25 09:00
02/04/25 02/05/25 02/06/25
06:59 06:59 06:59
Actual Weight 191 lb 5.78 oz 197 lb 5.019 oz
02/05/25 03:20
02/05/25 03:20
PT 17.2 Sec (11.4-14.6) H 02/04/25 12:25
INR 1.38 02/04/25 12:25
APTT 37.8 Sec (23.4-35.0) H 02/04/25 12:25
Magnesium 2.2 mg/dl (1.6-2.3) 02/05/25 03:20
Physical Exam
Constitutional: No acute distress and Comfortable
Cardiovascular: Rhythm & rate is regular, Pedal edema is absent, S1S2 is normal and Murmur/rub/gallop absent
Respiratory: Respiratory effort normal and Lungs clear to auscul.
Neuro/Psych: AO x 3
Other: Other (sternal wound well-approximated, no drainage)
Data Reviewed
-
Date of Service: February 05, 2025
Medical Decision Making: Reviewed Test Results, Independent Historian Assessment, Test Interpretation and Review of Case with other Provider
EKG: Tracing Personally Visualized and interpreted
Echo: Report Reviewed by me
Labs: Labs Reviewed by me
--- NOTE | 2025-02-05 10:45 | PTCARENOTE ---
Riley care provided, Riley dc'd as ordered. Dobutamine titrated off as ordered @0900, PRODUCTION SUPERVISOR Dede aware of hemodynamics. L radial Nina dc'd as ordered, dressing c/d/i. BILL blunt dc'd as ordered, BILL blandon redressed, c/d/i. pt OOB to chair w/ assist.
[2025-02-05 11:06] LABS: Glucose - Point of Care 112 mg/dl (70-99)
--- NOTE | 2025-02-05 11:23 | W.PN.ANS.POP ---
Anesthesia Post Operative
- Anesthesia Post Op Note
Vital Signs Stable-See Nursing Note: Yes
Airway Patent: Yes
Adequate Pain Control: Yes
Change in Mental Status: No
Current Postoperative Nausea & Vomiting: No
Anesthesia Complications: No
General Anesthetic Recall: No
Unplanned Admission: No
Post Op Hydration Adequate: Yes
- -
Pt OOB to chair, resting comfortably with no anesthesia c/o at time of post op visit. VSS
--- NOTE | 2025-02-05 11:52 | CM ---
CM following for DC planning needs.
Patient is POD#1.
Attempted to meet w/ patient at bedside but he was sleeping soundly. Did not disturb.
Reviewed initial assessment. Patient resides w/ spouse in a 2nd fl[address]. apartment w/ [address]. Functionally, patient is indep. at baseline w/ ADLs, mobility without the use of any assisted device.
Antic. DC plan is for home with [facility] Transitional [facility] RN.
CM to follow.
--- NOTE | 2025-02-05 12:15 | PTCARENOTE ---
pt VSS, IS encouraged. Roxicodone 5mg PO given for pain.
[2025-02-05 13:09] LABS: Glucose - Point of Care 94 mg/dl (70-99)
[2025-02-05] MEDS: FERRLECIT 110 MG IV (13:09)
[2025-02-05] MEDS: ALBUMIN 5% 250 IV ×2 (14:06→16:11)
[2025-02-05 15:20] LABS: Glucose - Point of Care 135 mg/dl (70-99)
[2025-02-05] MEDS: NEURONTIN 100 MG PO ×2 (15:46→21:13)
--- NOTE | 2025-02-05 16:15 | PTCARENOTE ---
pt VSS, pt states no urge to void, bladder scanned for 53ml, SPRING REPAIRER HELPER HAND Dede aware. RLE FRIDA bandage removed. pt attempted to sit on BSC, +flatus, no BM. pt placed back to bed. Albumin 250ml given x2 as ordered per SPRING REPAIRER HELPER HAND. PRN Flexeril given for pain. pt c/o
swelling in LUE, no pain, SPRING REPAIRER HELPER HAND Dede aware.
[2025-02-05 17:13] LABS: Glucose - Point of Care 96 mg/dl (70-99)
[2025-02-05] MEDS: NOVOLOG FLEXPEN 4 UNITS SC (17:32)
--- NOTE | 2025-02-05 17:52 | PTCARENOTE ---
CT dressing changed. pt bladder scanned for 162ml, no urge to void. BURLAP ROLL COVERER Dede aware. pt OOB to chair w/ assist. tolerated well. son at bedside.
[2025-02-05] MEDS: NOVOLIN R INSULIN INFUSION 100 IV (18:10)
[2025-02-05 18:58] LABS: Glucose - Point of Care 153 mg/dl (70-99)
--- NOTE | 2025-02-05 20:00 | PTCARENOTE ---
assumed care of patient @ 1900. received pt sitting in chair, Aox3. Severe c/o pain, .5 Dilaudid given. SR/ST low 100s on monitor. BP stable. +pulses, trace edema throughout. V wire present to box on VVI 60,10,.8. lungs clear, diminished on 3L
satting mid 90s. 2 mediastinal chest tubes to wall suction with serosang drainage. Belly soft, nontender, passing gas. poor appetite reported by patient. Riley pulled earlier, DTV, will attempt to void soon. Sternum, radial, R groin and R knee sites
CDI KIANA closed with surgical glue. R IJ cordis and L AC PIV both patent. On insulin per protocol.
[2025-02-05] MEDS: DILAUDID 0.5 MG IV (20:06)
[2025-02-05 21:11] LABS: Glucose - Point of Care 122 mg/dl (70-99)
[2025-02-05] MEDS: CRESTOR 40 MG PO (21:12)
[2025-02-05] MEDS: REMOVE LIDOCAINE PATCH 1 PATCH REMOVE (21:14)
[2025-02-05] MEDS: MAGNESIUM SULFATE 100 IV (23:49)
[2025-02-05] MEDS: LOPRESSOR 2.5 MG IV (23:49)
[2025-02-06] VITALS (18 sets, daily range): BP systolic 95–129; BP diastolic 63–83; BMI 33.5
--- NOTE | 2025-02-06 | PTCARENOTE ---
pt was able to void clear silvia urine, resting comfortably no change in assessment .
--- NOTE | 2025-02-06 00:30 | PTCARENOTE ---
pt with run of SVT - 2.5 lopressor and 1g mag ordered and given .
[2025-02-06 01:03] LABS: Glucose - Point of Care 110 mg/dl (70-99)
[2025-02-06 02:01] LABS: Glucose - Point of Care 108 mg/dl (70-99)
[2025-02-06 02:20] LABS: Hematocrit 25.1 % (39.0-52.0); Hemoglobin 8.7 g/dL (13.0-18.0); Mean Corp Hgb Conc. 34.7 g/dL (33.0-37.0); Mean Corpuscular Volume 90.6 fL (80.0-94.0); Platelet Count 147 10^3/uL (130-400); Red Cell Dist. Width 13.6 % (11.5-14.5)
--- NOTE | 2025-02-06 02:43 | W.PN.CT ---
Today's Communication / Plan
-
-no overnight issues.
-brief run of AT s/p IV Lopressor and MG, remains in NSR
-de-lined
-UOP 550/630, veras DCd
-CT: 2meds 115/325 out in 12/24 hrs
-BB on hold given postop hypotension and need for Dobutamine. possibly restart this morning
-Cont. current meds (amio, ASA, Crestor, Plavix)
-Maintain cordis
-Maintain temporary PW (will likely pull tomorrow)
-Encourage use of IS
-Wean off of O2 as tolerated
-OOB into chair
Assessment / Plan
-
Assessment:
-S/P Sternotomy/CABG x 1 (Ao to RSVG to OM)/Aortic valve replacement [29 mm bioprosthesis]/JUAN clip (40 mm), by Dr. Mcdaniel, 02/04/25 pod#2
-Severe aortic valve stenosis, symptomatic
-Mild MR
-Mild TR
-LVEF 60-65%
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
-Positional vertigo
-Exertional and resting angina
-GERD
-Hyperlipidemia
-Hypertension
-Class 1 obesity (BMI 31.6)
-Prediabetes (hgA1C 6.0)
-Former tobacco use (quit 45 yrs ago)
-Ophthalmoplegic neuropathy
-Migraine headaches
-Vitamin D deficiency
-Chronic back pain
-Lumbosacral spondylosis with radiculopathy
-S/P L4/L5 discectomy and laminectomy
-S/P Lumbar epidural injections
-S/P Cataract surgery
-Acute postop blood loss/Anemia (stable without transfusion)
-Acute postop coagulopathy (DDAVP)
-Acute postop atelectasis
-Acute postop hypovolemia with subsequent hypervolemia
Subjective
Procedure
S/P Sternotomy/CABG x 1 (Ao to RSVG to OM)/Aortic valve replacement [29 mm bioprosthesis]/JUAN clip (40 mm), by Dr. Mcdaniel, 02/04/25
-
Date of Service: February 06, 2025
Objective Data
-
Lab Results
02/06/25 02:09
PT 17.2 Sec (11.4-14.6) H 02/04/25 12:25
INR 1.38 02/04/25 12:25
APTT 37.8 Sec (23.4-35.0) H 02/04/25 12:25
Vital Signs
Vital Signs
Temp Pulse Resp BP Pulse Ox
98.4 F 97 15 107/70 92
02/05/25 16:00 02/05/25 23:30 02/05/25 23:30 02/05/25 23:00 02/05/25 23:30
CT Intake/Output/Weight
02/05/25 02/05/25 02/06/25
06:59 18:59 06:59
Intake Total 962.4 / 1463.6 1735.6 / 1784.5 48.9 / 1784.5
Output Total 930 / 1770 290 / 620 330 / 620
Balance 32.4 / -306.4 1445.6 / 1164.5 -281.1 / 1164.5
SaO2: 92
Physical Exam
-
General: Awake and Oriented
Cardiovascular: Regular rate & rhythm, No Murmurs and No Rub
Respiratory: Clear
Sternum: Stable
Incision: Clean, Dry and Intact
Extremities: No Edema and No Erythema
Data Reviewed
-
Lab Results: Results Reviewed
Medications: Active Meds Reviewed
Chest X-Ray: Report Reviewed
CT Scan: Report Reviewed
ECG: Report Reviewed
[2025-02-06 02:50] LABS: Blood Urea Nitrogen 24 mg/dl (9-20); Calcium 8.3 mg/dl (8.4-10.2); Carbon Dioxide 29 mmol/L (22-30); Chloride 103 mmol/L (98-107); Estimated Creatinine Clearance 64 ml/min; Glucose 94 mg/dl (70-99); Magnesium 2.8 mg/dl (1.6-2.3); Potassium 4.3 mmol/L (3.5-5.1); Sodium 134 mmol/L (135-145); eGFR > 60.00
[2025-02-06 04:05] LABS: Glucose - Point of Care 109 mg/dl (70-99)
[2025-02-06] MEDS: ROXICODONE 5 MG PO ×3 (04:21→21:28)
[2025-02-06] MEDS: MAALOX 30 ML PO (04:21)
[2025-02-06] MEDS: DILAUDID 0.5 MG IV (06:14)
[2025-02-06] MEDS: TYLENOL 1000 MG PO ×3 (06:16→21:27)
[2025-02-06 06:26] LABS: Glucose - Point of Care 148 mg/dl (70-99)
[2025-02-06 08:15] LABS: Glucose - Point of Care 100 mg/dl (70-99)
--- NOTE | 2025-02-06 08:22 | W.PN.INTV ---
Today's Communication / Plan
Recommendations
Up OOB as tolerated
Continue insulin drip per protocol, goal BG 110�140 --> insulin drip to be turned off later this morning/afternoon
Wean down supplemental O2 flow rate, maintaining SpO2 >90-94%
If patient is saturating <96% on room air at rest, then please check ambulatory pulse oximetry prior to discharge
Encourage incentive spirometer
Pain control
Cardiac rehab
Insulin drip being stopped later this morning/afternoon, and patient to be transitioned to CVICU�telemetry status at that time. Once downgraded, then our service will sign off. Please call back with any questions or concerns.
Assessment
-
Assessment: 69-year-old M with PMHx of CAD, severe AV stenosis, GERD, chronic back pain, lumbosacral spondylosis, HLD and migraine headaches who p/w elective CABG + AVR. Pt known to CT surgery service, with last visit on 01/13/[address] Mcdaniel.
Pt has known single-vessel CAD and . He has intermittent chest tightness, and feels that his symptoms are worsening compared to about 1 year ago. His echo performed at OSH in September 2024 showed a heavily calcified aortic valve with LVEF 85%, with
reduced AV leaflet excursion, and aortic root calcification. There was no significant AI. Stress test in November 2024 showed abnormal myocardial perfusion suggesting ischemia to the basal lateral wall with EF 75%. LHC on 12/12/2024 showed disease in
the LAD although iFR was negative at 0.91. He has significant disease of his mid-circ/OM1 with suspected 99% occlusion. Biological AVR and CABG were reviewed in detail, and the pt agreed to surgical intervention. On 02/04/2025, he underwent CABG
x1, SAVR and JUAN-exclusion with a 40mm clip. He tolerated the procedure well, and was TRX to CVICU post-operatively for further care. Software Packaging Engineer service now consulted for additional recommendations/management.
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
Impression:
#Single-vessel CAD involving mid-LCx/OM1 s/p CABG x1 (Ao to RSVG to OM) - POD#2
#Severe aortic valve stenosis s/p bioprosthetic AVR (29mm) - POD#2
#Anemia
#Transaminitis (AST mildly elevated)
#Lactic acidosis - resolved
#Bicuspid aortic valve morphology, type I with fused right left coronary cusp
#Positional vertigo
#GERD
#HLD
#HTN
#Former tobacco smoker (quit >45 years ago)
Plan:
Successfully extubated on 02/04, and is currently saturating 93% on 2 L/min nasal cannula
Continue weaning down supplemental O2 flow rate well-maintaining SpO2 >90-94%
If patient is saturating <96% on room air at rest, then please check ambulatory pulse oximetry prior to discharge
prn nebulized bronchodilators - not currently bronchospastic
IS encouraged q1hr while awake
Maintain MAP>65
Replete electrolytes with K>4, Mg>2
Monitor chest tube output (mediastinal chest tubes x2 - to be removed today)
Monitor hemoglobin
Monitor platelet count and coags
Transfuse blood products as needed to maintain Hb>7g/dL, plt>50k (given post-operative status)
CT surgery managing chest tubes
Monitor blood sugar to maintain euglycemia with goal BG 110-140
Insulin drip per protocol -being turned off today; transition to ISS to maintain BG goal as above
Aspiration precautions
DVT prophylaxis
Early nutrition
Early mobilization
Insulin drip being stopped later this morning/afternoon, and patient to be transitioned to CVICU�telemetry status at that time. Once downgraded, then our service will sign off. Please call back with any questions or concerns. Thank you for
allowing our service to be involved in the care of this patient.
Total time spent today was 61 minutes for this encounter. Time includes reviewing laboratory test/imaging results, reviewing pertinent medical records, obtaining and reviewing medical history, performing an appropriate exam, ordering medications,
tests and procedures. Time also includes documentation of this encounter, coordinating patient care and communicating with other healthcare professionals. Total time does not include separately billed tests performed on this date of service.
Subjective Dataa
Subjective Data
Date of Service:
Date of Service: February 06, 2025
Chief Complaint: Software Packaging Engineer Follow Up
Subjective:
Patient seen and evaluated this morning. Currently on insulin drip at 2.6 units/hr. Also on 2 L/min nasal cannula, saturating 94%, heart rate 105 and BP 103/73. No acute events reported from overnight.
Review of Systems
General: Other (Negative unless mentioned above)
Objective Data
Data Reviewed
Vital Signs / I&O / Oxygen:
Vital Signs
Temp Pulse Resp BP Pulse Ox
98.4 F 99 23 127/83 92
02/06/25 08:16 02/06/25 08:45 02/06/25 08:45 02/06/25 08:45 02/06/25 09:08
Intake and Output
02/05/25 02/06/25 02/07/25
06:59 06:59 06:59
Intake Total 1463.6 / 1463.6 1846.0 / 1846.0 500 / 500
Output Total 1770 / 1770 1135 / 1135 300 / 300
Balance -306.4 / -306.4 711.0 / 711.0 200 / 200
SaO2 [SIMV] 97
SaO2 92
Nasal Cannula flow liters per 2
minute
Physical Exam
General: Respiratory Distress (negative), Comfortable, Chills (negative) and Sweats (negative)
HEENT: Normocephalic and Anicteric
Cardiovascular: S1-S2 and Peripheral Edema (negative)
Respiratory: Wheeze (negative), Crackles (negative), Rhonchi (negative), Non-Labored Respirations, Stridor (negative) and Chest Tube (Mediastinal chest tubes x 2)
GI: Soft, Non Distended, Non Tender and Normal Bowel Sounds
Neurology: Awake, Alert and Tremors (negative)
Skin: Warm, Dry, Cyanosis (negative) and Jaundice (negative)
Labs/Micro/Reports
Lab Data
02/06/25 02:09
02/06/25 02:09
Microbiology
02/04/25 07:00 Urine Urine Culture - Final
NO GROWTH
[2025-02-06] MEDS: LOW STRENGTH ASPIRIN 81 MG PO (08:27)
[2025-02-06] MEDS: MAGNESIUM OXIDE 500 MG PO (08:27)
[2025-02-06] MEDS: PROTONIX 40 MG PO (08:27)
[2025-02-06] MEDS: PACERONE 200 MG PO ×3 (08:27→21:28)
[2025-02-06] MEDS: PLAVIX 75 MG PO (08:27)
[2025-02-06] MEDS: LOPRESSOR 12.5 MG PO ×2 (08:28→21:27)
[2025-02-06] MEDS: SENOKOT-S 1 TABLET PO ×2 (08:28→21:28)
[2025-02-06] MEDS: NEURONTIN 100 MG PO ×3 (08:28→21:27)
[2025-02-06] MEDS: BACTROBAN 2% OINTMENT 1 APPLIC NASAL ×2 (08:29→21:29)
[2025-02-06] MEDS: TORADOL 15 MG IV (08:34)
[2025-02-06] MEDS: NOVOLOG FLEXPEN 4 UNITS SC ×3 (08:39→12:17)
--- NOTE | 2025-02-06 09:02 | W.PN.CD ---
Today's Communication / Plan
-
Furosemide 40 mg IV x1 and monitor.
Incentive spirometry.
Ambulate.
Impression / Plan
-
Impression/Plan: 69-year-old man with aortic valve stenosis and single-vessel coronary artery disease who presents for elective CABG and aortic valve replacement.
#Severe aortic stenosis
-Chronic, progressive.
-S/P AVR (#29 Acosta Inspiris Resilia AVR, serial #[id number]) and ELAA (#40 AtriClip, serial #[id number]) with Dr. Mcdaniel, 02/04/2025.
-Routine post operative care.
-Wean pressors/inotropes for MAP > 65 mmHg, CI > 1.8 L/min/m2.
-Encourage incentive spirometry.
-Ambulate.
-Continue amiodarone, aspirin, clopidogrel, metoprolol.
-Pain/chest tube management per CT surgery.
-Weight is up and Na is down. BP stable. Furosemide 40 mg IV x1 and monitor response.
#Coronary artery disease
-Chronic, progressive.
-Cath showed non-occlusive LAD (iFR 0.91, subtotally occluded LCx).
-s/p CABG x 1 (Ao to RSVG to OM) with Dr. Mcdaniel, 02/04/2025.
-Post operative care as above.
- Continue aspirin, clopidogrel, and statin
- Add beta-mars once off of dobutamine
LUE swelling
-Not painful. Continue to monitor.
Subjective/Interval History:
Brief AT overnight. Treated with IV metoprolol and magnesium.
Weight is up 2.5 kg from yesterday, 5.2 kg from admission.
SaO2 90-93% on 2LNC.
Dobutamine discontinued. Metoprolol started.
Na down to 134.
Physical Exam
Vital Signs/Labs
Vital Signs
Temp Pulse Resp BP Pulse Ox
36.9 C 99 23 127/83 90
02/06/25 08:16 02/06/25 08:45 02/06/25 08:45 02/06/25 08:45 02/06/25 08:45
02/04/25 02/05/25 02/06/25
11:59 11:59 11:59
Actual Weight 86.8 kg 89.5 kg 92 kg
02/06/25 02:09
02/06/25 02:09
PT 17.2 Sec (11.4-14.6) H 02/04/25 12:25
INR 1.38 02/04/25 12:25
APTT 37.8 Sec (23.4-35.0) H 02/04/25 12:25
Magnesium 2.8 mg/dl (1.6-2.3) H 02/06/25 02:09
Physical Exam
Constitutional: No acute distress and Comfortable
EENT: Anicteric and Moist mucous membranes
Cardiovascular: Rhythm & rate is regular, Pedal edema is absent, JVD pressure is normal, S1S2 is normal and Murmur/rub/gallop absent
Respiratory: Other (Decreased throughout.)
GI: Soft, Distention absent, Flat, Non tender and Normal bowel sounds
Neuro/Psych: AO x 3
Data Reviewed
-
Date of Service: February 06, 2025
Medical Decision Making: Reviewed Test Results, Independent Historian Assessment and Test Interpretation
EKG: Tracing Personally Visualized and interpreted and Report Reviewed by me
X-Ray/CT/US/MRI/NUC/PET: Image Personally Visualized and interpreted and Report Reviewed by me
Labs: Labs Reviewed by me
Old Records: Reviewed
--- NOTE | 2025-02-06 09:05 | PTCARENOTE ---
Rec'd pt this shift awake and alert in chair. Pt assisted back to bed. Pt ST on monitor. Pt on Insulin drip and titrated according to glycemic protocol. Epicardial wires pulled by LUKE Lee. VS done as per protocol. AM meds given. See worklist
for VS/I and O and assessments.
[2025-02-06 10:01] LABS: Glucose - Point of Care 133 mg/dl (70-99)
[2025-02-06] MEDS: LASIX 40 MG IV (11:07)
[2025-02-06 12:18] LABS: Glucose - Point of Care 164 mg/dl (70-99)
[2025-02-06] MEDS: LIDOCAINE 4% PATCH TOPICAL (13:08)
[2025-02-06] MEDS: FERRLECIT 110 MG IV (14:15)
[2025-02-06] MEDS: NSS 500 IV (14:15)
--- NOTE | 2025-02-06 14:49 | CM ---
CM following for DC planning needs.
Pt. POD# 2.
Met w/ patient at bedside. He reports that he is feeling well.
I offered Advanced Directive/ Living Will. Pt. declines.
Antic. DC plan is for home w/ CT Transitional Care RN.
CM to follow.
[2025-02-06 15:27] LABS: Hepatitis C Antibody Negative (Negative)
--- NOTE | 2025-02-06 15:34 | PTCARENOTE ---
oxygen weaned to 1l n/c oxygen. Pt ambulated in room and in hallway with one person assist, tolerated well.
[2025-02-06 17:26] LABS: Glucose - Point of Care 114 mg/dl (70-99)
--- NOTE | 2025-02-06 19:35 | PTCARENOTE ---
assumed care of patient @ 1900. received pt sitting in chair, Aox3. SR/ST low 100s on monitor. BP stable. +pulses, +1 edema throughout. lungs clear, diminished on 1L satting mid 90s. Belly soft, nontender, passing gas. voiding clear silvia urine in
urinal/toilet. Sternum, radial, R groin and R knee sites CDI KIANA closed with surgical glue. R IJ cordis and L AC PIV both patent. call doshi within raech
[2025-02-06] MEDS: CRESTOR 40 MG PO (21:27)
[2025-02-06] MEDS: REMOVE LIDOCAINE PATCH 1 PATCH REMOVE (21:28)
[2025-02-07] VITALS (8 sets, daily range): BP systolic 92–124; BP diastolic 56–79; PULSE 104; O2SAT 95; BMI 33.2
--- NOTE | 2025-02-07 | PTCARENOTE ---
pt resting comfortably in bed, no change in assessment .
[2025-02-07] MEDS: ROXICODONE 5 MG PO ×3 (03:42→21:20)
[2025-02-07 03:44] LABS: Hematocrit 25.6 % (39.0-52.0); Hemoglobin 8.6 g/dL (13.0-18.0); Mean Corp Hgb Conc. 33.6 g/dL (33.0-37.0); Mean Corpuscular Volume 93.1 fL (80.0-94.0); Platelet Count 144 10^3/uL (130-400); Red Cell Dist. Width 13.6 % (11.5-14.5)
--- NOTE | 2025-02-07 04:00 | PTCARENOTE ---
labs drawn and sent. pt resting comfortably, no change in assessment.
[2025-02-07 04:04] LABS: Blood Urea Nitrogen 24 mg/dl (9-20); Calcium 7.8 mg/dl (8.4-10.2); Carbon Dioxide 29 mmol/L (22-30); Chloride 101 mmol/L (98-107); Estimated Creatinine Clearance 72 ml/min; Glucose 125 mg/dl (70-99); Magnesium 2.6 mg/dl (1.6-2.3); Potassium 4.6 mmol/L (3.5-5.1); Sodium 133 mmol/L (135-145); eGFR > 60.00
--- NOTE | 2025-02-07 04:42 | W.PN.CT ---
Today's Communication / Plan
-
-pod #3
-no issues overnight, no complaints
-no drips, Dobutamine is off 02/05
-BB started 02/06
-diuresed with 40 iv Lasix on 02/06 - UO 900+
-Na 133 - follow, consider diuresis
-Hg 8.6 (8.7 on 02/06)- follow
-Cr stable 1.0 (0.9 preop)
-encourage IS, OOB, ambulate
-wean off O2 - on 1L pOx 94%
Assessment / Plan
-
Assessment:
-S/P Sternotomy/CABG x 1 (Ao to RSVG to OM)/Aortic valve replacement [29 mm bioprosthesis]/JUAN clip (40 mm), by Dr. Mcdaniel, 02/04/25 pod#3
-Severe aortic valve stenosis, symptomatic
-Mild MR
-Mild TR
-LVEF 60-65%
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
-Single-vessel coronary disease with essentially a GROUP BURNER MACHINE of the large OM branch with left to left and right to left collateralization
-Positional vertigo
-Exertional and resting angina
-GERD
-Hyperlipidemia
-Hypertension
-Class 1 obesity (BMI 31.6)
-Prediabetes (hgA1C 6.0)
-Former tobacco use (quit 45 yrs ago)
-Ophthalmoplegic neuropathy
-Migraine headaches
-Vitamin D deficiency
-Chronic back pain
-Lumbosacral spondylosis with radiculopathy
-S/P L4/L5 discectomy and laminectomy
-S/P Lumbar epidural injections
-S/P Cataract surgery
-Acute postop blood loss/Anemia (stable without transfusion)
-Acute postop coagulopathy (DDAVP)
-Acute postop atelectasis
-Acute postop hypovolemia with subsequent hypervolemia
-Acute postop hyponatremia
Discussed patient care with: Nursing and Care Team
Subjective
Procedure
S/P Sternotomy/CABG x 1 (Ao to RSVG to OM)/Aortic valve replacement [29 mm bioprosthesis]/JUAN clip (40 mm), by Dr. Mcdaniel, 02/04/25
-
Date of Service: February 07, 2025
Objective Data
-
Lab Results
02/07/25 03:29
02/07/25 03:29
PT 17.2 Sec (11.4-14.6) H 02/04/25 12:25
INR 1.38 02/04/25 12:25
APTT 37.8 Sec (23.4-35.0) H 02/04/25 12:25
Vital Signs
Vital Signs
Temp Pulse Resp BP Pulse Ox
98.9 F 91 16 96/63 94
02/07/25 04:00 02/07/25 01:00 02/07/25 04:00 02/07/25 00:14 02/07/25 04:00
CT Intake/Output/Weight
02/06/25 02/06/25 02/07/25
06:59 18:59 06:59
Intake Total 110.4 / 1846.0 624 / 724 100 / 724
Output Total 845 / 1135 900 / 900
Balance -734.6 / 711.0 -276 / -176 100 / -176
SaO2: 94
Physical Exam
-
General: Awake and AOx3
Cardiovascular: Regular rate & rhythm, No Murmurs and No Rub
Respiratory: Decreased Breath Sounds
Sternum: Stable
Incision: Clean, Dry and Intact
Extremities: Other (trace edema b/l, 1+ DPs b/l)
Abdomen: soft, nontender, nondistended, + bowel sounds
Data Reviewed
-
Lab Results: Results Reviewed
Medications: Active Meds Reviewed
Chest X-Ray: Report Reviewed and Image Reviewed
ECG: Report Reviewed and Image Reviewed
[2025-02-07] MEDS: CALCIUM GLUCONATE 100 IV (06:42)
--- NOTE | 2025-02-07 06:52 | W.PN.CD ---
Today's Communication / Plan
-
Furosemide 40 mg IV this morning, repeat this afternoon if BP will tolerate.
Pain managment.
EKG.
Ambulate.
Incentive spirometry.
Impression / Plan
-
Impression/Plan: 69-year-old man with aortic valve stenosis and single-vessel coronary artery disease who presents for elective CABG and aortic valve replacement.
#Severe aortic stenosis
-Chronic, progressive.
-S/P AVR (#29 Acosta Inspiris Resilia AVR, serial #[id number]) and ELAA (#40 AtriClip, serial #[id number]) with Dr. Mcdaniel, 02/04/2025.
-Routine post operative care.
-Encourage incentive spirometry.
-Ambulate.
-Continue amiodarone, aspirin, clopidogrel, metoprolol.
-Chest pain seems related to lung expansion/atelectasis (DDx includes pericarditis, ischemia, etc). Check EKG out of caution.
-Repeat furosemide 40 mg IV this morning and again in the afternoon.
#Coronary artery disease
-Chronic, progressive.
-Cath showed non-occlusive LAD (iFR 0.91, subtotally occluded LCx).
-s/p CABG x 1 (Ao to RSVG to OM) with Dr. Mcdaniel, 02/04/2025.
-Post operative care as above.
-Continue aspirin, clopidogrel, metoprolol and statin.
#LUE swelling
-Not painful. Continue to monitor.
Subjective/Interval History:
Chest tubes removed.
Furosemide 40 mg given yesterday.
Good UOP. Weight down 0.9 kg.
He notes some chest pain, worse with inspiration.
Physical Exam
Vital Signs/Labs
Vital Signs
Temp Pulse Resp BP Pulse Ox
37.2 C 91 16 96/63 94
02/07/25 04:00 02/07/25 01:00 02/07/25 04:00 02/07/25 00:14 02/07/25 04:50
02/05/25 02/06/25 02/07/25
11:59 11:59 11:59
Actual Weight 89.5 kg 92 kg 91.1 kg
02/07/25 03:29
02/07/25 03:29
PT 17.2 Sec (11.4-14.6) H 02/04/25 12:25
INR 1.38 02/04/25 12:25
APTT 37.8 Sec (23.4-35.0) H 02/04/25 12:25
Magnesium 2.6 mg/dl (1.6-2.3) H 02/07/25 03:29
Physical Exam
Constitutional: No acute distress and Comfortable
EENT: Anicteric and Moist mucous membranes
Cardiovascular: Rhythm & rate is regular, Pedal edema is absent, JVD pressure is normal, S1S2 is normal and Murmur/rub/gallop absent
Respiratory: Respiratory effort normal and Other (Decreased at the bilateral bases.)
GI: Soft, Distention absent, Flat, Non tender and Normal bowel sounds
Neuro/Psych: AO x 3
Data Reviewed
-
Date of Service: February 07, 2025
Medical Decision Making: Reviewed Test Results, Independent Historian Assessment and Test Interpretation
EKG: Tracing Personally Visualized and interpreted and Report Reviewed by me
Echo: Report Reviewed by me
X-Ray/CT/US/MRI/NUC/PET: Image Personally Visualized and interpreted and Report Reviewed by me
Medical Tests (PFT, Pathology etc): Report Reviewed by me
Labs: Labs Reviewed by me
Old Records: Reviewed
[2025-02-07] MEDS: SENOKOT-S 1 TABLET PO ×2 (07:27→21:21)
[2025-02-07] MEDS: BACTROBAN 2% OINTMENT 1 APPLIC NASAL ×2 (07:27→21:20)
[2025-02-07] MEDS: FLEXERIL 5 MG PO (07:27)
[2025-02-07] MEDS: PROTONIX 40 MG PO (07:27)
[2025-02-07] MEDS: LIDOCAINE 4% PATCH 1 PATCH TOPICAL (07:27)
[2025-02-07] MEDS: LOW STRENGTH ASPIRIN 81 MG PO (07:28)
[2025-02-07] MEDS: TYLENOL 1000 MG PO ×3 (07:28→21:22)
[2025-02-07] MEDS: LOPRESSOR 12.5 MG PO ×2 (07:28→21:20)
[2025-02-07] MEDS: PLAVIX 75 MG PO (07:28)
[2025-02-07] MEDS: NEURONTIN 100 MG PO ×3 (07:28→21:21)
[2025-02-07] MEDS: PACERONE 200 MG PO ×3 (07:28→21:22)
--- NOTE | 2025-02-07 07:30 | PTCARENOTE ---
Assumed care of patient from production shift supervisor RN. AAo x 3 sitting up in the chair. SR / ST on monitor. Room air 92%, Is to 1000, Harsh cough at times productive. Abdomen with active bowel sounds, passing 'a lot' of gas per patient. Voiding w/o
issue. Trace pedal edema appreciated. VSS. Surgical sites c,d,i. Assessment otherwise unchanged from prior.
[2025-02-07] MEDS: LASIX 40 MG IV ×2 (08:43→13:12)
--- NOTE | 2025-02-07 12:00 | PTCARENOTE ---
Denies pain , appetite improved today. VSS. Assessment otherwise unchanged from prior.
[2025-02-07] MEDS: NSS IV (12:57)
[2025-02-07] MEDS: FERRLECIT 110 MG IV (13:12)
--- NOTE | 2025-02-07 16:36 | CM ---
dc plans remain home when medically stable and f/u visit with the ct transitional care nurse.
--- NOTE | 2025-02-07 20:00 | PTCARENOTE ---
Report received from TYSON Gooden. Pt in BR. Assisted back to bed. Pt oriented x 3. Speech clear. Moves all extremities with equal strength. Generalized weakness present. 1-person assist. Does c/o intermittent dizziness and lightheadedness with
position change. Normotensive. Pt in ST-SR. 90-110's. Palpable, +2 B radial and DP pulses. Trace edema throughout. For wound assessments, see flowsheets. Pt on 1L/NC while in bed. Sats 94-97% on 1L. BBS present. Posterior bases with rales. CDB and
IS encouraged. IS peak 1000 mls. Pt had soft, moderate brown BM. Belly soft, nontender. No n/v. Normoactive bs x 4. Urine clear, yellow. Voids without difficulty. To give meds as scheduled. Ongoing plan of care.
[2025-02-07] MEDS: CRESTOR 40 MG PO (21:21)
[2025-02-07] MEDS: REMOVE LIDOCAINE PATCH 1 PATCH REMOVE (21:21)
[2025-02-08] VITALS (12 sets, daily range): BP systolic 99–136; BP diastolic 59–74; PULSE 95; O2SAT 94–95; BMI 32.7
--- NOTE | 2025-02-08 | PTCARENOTE ---
Pt c/o sternal pain with coughing. Roxicodone 5 mg po given along with scheduled Tylenol at ~2200. Pt remains in SR-ST with activity. Sats on 1L/NC mid-90's.
[2025-02-08] MEDS: ROXICODONE 5 MG PO (03:42)
--- NOTE | 2025-02-08 04:00 | PTCARENOTE ---
Pt called out to RN to get assistance to BR. BP taken lying then sitting. Pt c/o transient dizziness with sitting: Systolic BP 99 HG. Pt helped to BR to void clear, yellow urine. Passed flatus, no BM. Then assisted to standing scale and weighed. Pt
helped back to bed. Denied dizziness, lightheadedness with walking. Brushed teeth, washed face. C/O 7/10 sternal pain. FLOR Christopher at bedside. Roxicodone 5 mg po given for pain. Labs drawn and sent. Pt placed on room air. Sats 91-92%.HR 90's at
rest, SR. With walking, HR 100's, ST. BP repeated on L arm at 116/69.
[2025-02-08 04:06] LABS: Glucose - Point of Care 129 mg/dl (70-99)
[2025-02-08 04:11] LABS: Hematocrit 23.2 % (39.0-52.0); Hemoglobin 7.8 g/dL (13.0-18.0); Mean Corp Hgb Conc. 33.6 g/dL (33.0-37.0); Mean Corpuscular Volume 91.3 fL (80.0-94.0); Platelet Count 173 10^3/uL (130-400); Red Cell Dist. Width 13.4 % (11.5-14.5)
[2025-02-08 04:34] LABS: Blood Urea Nitrogen 21 mg/dl (9-20); Calcium 7.7 mg/dl (8.4-10.2); Carbon Dioxide 31 mmol/L (22-30); Chloride 99 mmol/L (98-107); Estimated Creatinine Clearance 71 ml/min; Glucose 122 mg/dl (70-99); Magnesium 2.2 mg/dl (1.6-2.3); Potassium 3.8 mmol/L (3.5-5.1); Sodium 134 mmol/L (135-145); eGFR > 60.00
[2025-02-08] MEDS: TYLENOL 1000 MG PO (06:28)
--- NOTE | 2025-02-08 07:00 | PTCARENOTE ---
Pt helped to BR to void clear, yellow urine. Then helped to chair. VS done. Report to TYSON Trivedi. Walking rounds completed.
--- NOTE | 2025-02-08 07:41 | W.PN.CT ---
Today's Communication / Plan
-
-pod #4
-no issues overnight, asks about going home
-diuresed with 40 iv bid Lasix yesterday 02/07- UO 900+
-Hg 7.8 today (8.6 on 02/07)
-Tm 100.2, wbc is trending down. Encourage IS
-wean off O2
-ambulate
-possible d/c soon
Assessment / Plan
-
Assessment:
-S/P Sternotomy/CABG x 1 (Ao to RSVG to OM)/Aortic valve replacement [29 mm bioprosthesis]/JUAN clip (40 mm), by Dr. Mcdaniel, 02/04/25 pod#4
-Severe aortic valve stenosis, symptomatic
-Mild MR
-Mild TR
-LVEF 60-65%
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
-Single-vessel coronary disease with essentially a LABOR/EXCAVATOR of the large OM branch with left to left and right to left collateralization
-Positional vertigo
-Exertional and resting angina
-GERD
-Hyperlipidemia
-Hypertension
-Class 1 obesity (BMI 31.6)
-Prediabetes (hgA1C 6.0)
-Former tobacco use (quit 45 yrs ago)
-Ophthalmoplegic neuropathy
-Migraine headaches
-Vitamin D deficiency
-Chronic back pain
-Lumbosacral spondylosis with radiculopathy
-S/P L4/L5 discectomy and laminectomy
-S/P Lumbar epidural injections
-S/P Cataract surgery
-Acute postop blood loss/Anemia (stable without transfusion)
-Acute postop coagulopathy (DDAVP)
-Acute postop atelectasis
-Acute postop hypovolemia with subsequent hypervolemia
-Acute postop hyponatremia
Discussed patient care with: Nursing and Care Team
Subjective
Procedure
S/P Sternotomy/CABG x 1 (Ao to RSVG to OM)/Aortic valve replacement [29 mm bioprosthesis]/JUAN clip (40 mm), by Dr. Mcdaniel, 02/04/25
-
Date of Service: February 08, 2025
Objective Data
-
Lab Results
02/08/25 03:57
02/08/25 03:57
PT 17.2 Sec (11.4-14.6) H 02/04/25 12:25
INR 1.38 02/04/25 12:25
APTT 37.8 Sec (23.4-35.0) H 02/04/25 12:25
Vital Signs
Vital Signs
Temp Pulse Resp BP Pulse Ox
98.4 F 93 15 104/67 94
02/08/25 06:26 02/08/25 06:26 02/08/25 06:26 02/08/25 06:26 02/08/25 06:26
CT Intake/Output/Weight
02/07/25 02/08/25 02/08/25
18:59 06:59 18:59
Intake Total 900 / 980 80 / 980
Output Total 900 / 900
Balance 0 / 80 80 / 80
SaO2: 94
Physical Exam
-
General: Awake and AOx3
Cardiovascular: Regular rate & rhythm, No Murmurs and No Rub
Respiratory: Decreased Breath Sounds
Incision: Clean, Dry and Intact
Extremities: No Edema
Abdomen: soft, nontender, nondistended, + bowel sounds, +BM
Data Reviewed
-
Lab Results: Results Reviewed
Medications: Active Meds Reviewed
Chest X-Ray: Report Reviewed and Image Reviewed
ECG: Report Reviewed and Image Reviewed
--- NOTE | 2025-02-08 08:45 | PTCARENOTE ---
Assumed care of patient. Walking rounds completed with previous RN. Pt assessed while he was sitting in the chair. Pt alert and oriented x4. Rates sternal pain 5/10. Denies shortness of breath dizziness and nausea. FLORES with equal strength
throughout. Standby assist to ambulate in the room. SR-ST with rates in the 90s-100s. BP 112/69. Heart tones audible. Bilateral radial and DP pulses palpable. No edema noted. POX 92% on RA. Lungs diminished in the bases. IS encouraged-1000mL
achieved. Occasional dry nonproductive cough noted. Abdomen soft, round, nontender. +BS. Tolerating diet. Pt voiding adequate amounts of clear yellow urine. 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 Old chest tube site covered, dressing CDI. Right groin
puncture site approximated, KIANA. Right knee incision approximated, KIANA. Right IJ cordis intact. Left AC PIV intact. See MAR for medication administration. See worklist for complete nursing assessment. Plan of care reviewed and patient in agreement.
[2025-02-08] MEDS: LIDOCAINE 4% PATCH 1 PATCH TOPICAL (08:46)
[2025-02-08] MEDS: CALCIUM GLUCONATE 100 IV (08:46)
[2025-02-08] MEDS: BACTROBAN 2% OINTMENT 1 APPLIC NASAL (08:46)
[2025-02-08] MEDS: PLAVIX 75 MG PO (08:47)
[2025-02-08] MEDS: PROTONIX 40 MG PO (08:47)
[2025-02-08] MEDS: FLEXERIL 5 MG PO (08:47)
[2025-02-08] MEDS: PACERONE 200 MG PO (08:47)
[2025-02-08] MEDS: LASIX 20 MG IV (08:47)
[2025-02-08] MEDS: LOPRESSOR 12.5 MG PO (08:47)
[2025-02-08] MEDS: LOW STRENGTH ASPIRIN 81 MG PO (08:47)
[2025-02-08] MEDS: COLCHICINE 0.6 MG PO (08:47)
[2025-02-08] MEDS: NEURONTIN 100 MG PO (08:47)
[2025-02-08] MEDS: SENOKOT-S 1 TABLET PO (08:48)
[2025-02-08] MEDS: NSS IV (08:48)
--- NOTE | 2025-02-08 09:01 | W.PN.CD ---
Today's Communication / Plan
-
- Metoprolol 12.5 twice a day, continue aspirin and Plavix
- Possible discharge if no hypotension or bradycardia and tolerating p.o. and ambulating well.
Impression / Plan
-
Impression/Plan: 69-year-old man with aortic valve stenosis and single-vessel coronary artery disease who presents for elective CABG and aortic valve replacement.
#Severe aortic stenosis
-Chronic, progressive.
-S/P AVR (#29 Acosta Inspiris Resilia AVR, serial #[id number]) and ELAA (#40 AtriClip, serial #[id number]) with Dr. Mcdaniel, 02/04/2025.
-Routine post operative care.
-Encourage incentive spirometry.
-Ambulate.
-Continue amiodarone, aspirin, clopidogrel,
- Mildly tachycardic�will increase metoprolol.
-Chest pain seems related to lung expansion/atelectasis (DDx includes pericarditis, ischemia, etc). Check EKG out of caution.
- DC Lasix.
#Coronary artery disease
-Chronic, progressive.
-Cath showed non-occlusive LAD (iFR 0.91, subtotally occluded LCx).
-s/p CABG x 1 (Ao to RSVG to OM) with Dr. Mcdaniel, 02/04/2025.
-Post operative care as above.
-Continue aspirin, clopidogrel, metoprolol and statin.
#LUE swelling
-Not painful. Continue to monitor.
Subjective/Interval History:
Ambulating.
He notes some chest pain, worse with inspiration.
Physical Exam
Vital Signs/Labs
Vital Signs
Temp Pulse Resp BP Pulse Ox
98.4 F 93 15 104/67 94
02/08/25 06:26 02/08/25 06:26 02/08/25 06:26 02/08/25 06:26 02/08/25 07:46
02/07/25 02/08/25 02/09/25
06:59 06:59 06:59
Actual Weight 91.1 kg 89.6 kg
02/08/25 03:57
02/08/25 03:57
PT 17.2 Sec (11.4-14.6) H 02/04/25 12:25
INR 1.38 02/04/25 12:25
APTT 37.8 Sec (23.4-35.0) H 02/04/25 12:25
Magnesium 2.2 mg/dl (1.6-2.3) 02/08/25 03:57
Physical Exam
Constitutional: No acute distress and Comfortable
EENT: Anicteric and Moist mucous membranes
Cardiovascular: Rhythm & rate is regular, Pedal edema is absent and JVD pressure is normal
Respiratory: Respiratory effort normal, Lungs clear to auscul. and Wheeze Absent
GI: Soft, Distention absent, Non tender and Normal bowel sounds
Neuro/Psych: Alert, Oriented and AO x 3
Other: Skin
Data Reviewed
-
Date of Service: February 08, 2025
Medical Decision Making: Reviewed Test Results, Test Interpretation and Review of Case with other Provider
EKG: Tracing Personally Visualized and interpreted
Echo: Report Reviewed by me
Labs: Labs Reviewed by me
Old Records: Reviewed
--- NOTE | 2025-02-08 10:45 | PTCARENOTE ---
Pt ambulated in the cobb with CR, stairs completed. Pt assisted back to bed. Right IJ cordis d/c per orders. Pt tolerated.
--- NOTE | 2025-02-08 11:21 | W.DCSUMMARY ---
Discharge Summary
Discharge Data
Date of Admission: 02/04/25
Date of Discharge: 02/08/25
Total time spent discharging patient (in min): 60
-
Pending Results: No
Hospital Course
Primary care physician: Randy Norwood
Outpatient supervisor reactor fueling: Ezra James
Inpatient consultants: Cardiology
Procedures:
1. Coronary bypass grafting x 1 with saphenous vein graft obtuse marginal, Aortic valve replacement with a 29 mm bioprosthetic valve, left atrial appendage clip, by Dr. Mcdaniel, 02/04/25
Primary Diagnosis:
1. Severe aortic valve stenosis, symptomatic
Secondary Diagnoses:
-Mild Mitral regurgitation
-Mild Tricuspid regurgitation
-LVEF 60-65%
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
-Single-vessel coronary disease with essentially a Chronic total occlusionof the large OM branch with left to left and right to left collateralization
-Positional vertigo
-Exertional and resting angina
-Gastroesophageal reflux disease
-Hyperlipidemia
-Hypertension
-Class 1 obesity (BMI 31.6)
-Prediabetes (hgA1C 6.0)
-Former tobacco use (quit 45 yrs ago)
-Ophthalmoplegic neuropathy
-Migraine headaches
-Vitamin D deficiency
-Chronic back pain
-Lumbosacral spondylosis with radiculopathy
-History of L4/L5 discectomy and laminectomy
-History of Lumbar epidural injections
-History of Cataract surgery
-Acute postop blood loss/Anemia (stable without transfusion)
-Acute postop coagulopathy (DDAVP)
-Acute postop atelectasis
-Acute postop hypovolemia with subsequent hypervolemia
-Acute postop hyponatremia
HPI: Patient was seen and evaluated in the outpatient office regarding his severe aortic stenosis as well as coronary artery disease. After appropriate workup he was deemed a surgical candidate by the attending surgeon and subsequently admitted
electively for surgery.
Hospital course: Patient underwent aortic valve replacement as well as concomitant coronary artery bypass grafting x 1 and left atrial Penders exclusion by Dr. Gal Mcdaniel on 02/04/2025. Please refer to his separately dictated operative report for
complete details. Postoperatively the patient progressed well. He did require a dose of desmopressin for postop coagulopathy. Patient was extubated per usual postop protocol. He remained on low-dose dobutamine postoperatively.
Postoperative day #1: Dobutamine was weaned off and invasive monitoring lines were removed. Riley catheter was also removed. Patient did require some volume resuscitation on postop day 1 as well as overnight. He otherwise continued to progress
well.
Postoperative day #2: Epicardial pacing wires were removed. Chest tubes were removed. Patient was gently diuresed. He continued to progress with ambulation.
Postoperative day 3: Patient was again gently diuresed. Colchicine was started for pericardial rub as a prophylaxis against pericarditis. He was weaned to room air.
Postop day #4: Patient remained stable. Beta-blockers were continued and the patient's heart rate remained in the low 90s. Hemoglobin is 7.8 however the patient is asymptomatic and this will likely recover in time. He continued to progress with
ambulation and was deemed an appropriate candidate for discharge to home. He was sent home today with home health in place.
Discharge instructions were reviewed extensively with the patient his questions were answered to his satisfaction prior to leaving today.
Home medication changes: Patient was started on Plavix for dual antiplatelet therapy for 1 year post CABG. He was given a 7-day course of oxycodone for acute postop pain. He was given 1 month of colchicine. He was transitioned to Protonix from
omeprazole due to medication interaction with Plavix. He was advised to take Tylenol [id number] for pain.
Discharge Plan
-
Patient Disposition: Home (Routine Discharge)
Discharge Diagnosis/Procedures: -Status post coronary bypass grafting x 1 with saphenous vein graft obtuse marginal, Aortic valve replacement with a 29 mm bioprosthetic valve, left atrial appendage clip, by Dr. Mcdaniel, 02/04/25
-Severe aortic valve stenosis, symptomatic
-Mild Mitral regurgitation
-Mild Tricuspid regurgitation
-LVEF 60-65%
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
-Single-vessel coronary disease with essentially a Chronic total occlusionof the large OM branch with left to left and right to left collateralization
-Positional vertigo
-Exertional and resting angina
-Gastroesophageal reflux disease
-Hyperlipidemia
-Hypertension
-Class 1 obesity (BMI 31.6)
-Prediabetes (hgA1C 6.0)
-Former tobacco use (quit 45 yrs ago)
-Ophthalmoplegic neuropathy
-Migraine headaches
-Vitamin D deficiency
-Chronic back pain
-Lumbosacral spondylosis with radiculopathy
-History of L4/L5 discectomy and laminectomy
-History of Lumbar epidural injections
-History of Cataract surgery
-Acute postop blood loss/Anemia (stable without transfusion)
-Acute postop coagulopathy (DDAVP)
-Acute postop atelectasis
-Acute postop hypovolemia with subsequent hypervolemia
-Acute postop hyponatremia
Diet: Low Cholesterol, Low Sodium and Diabetic, Carb Controlled
Activity: No strenuous activity
Driving Restrictions: Not until seen by your Dr
Bathing Restrictions: OK to Shower
Other Services: Cardiac Rehab
Specialty Instructions: Weigh Daily- Call MD for wt gain/loss 3 lbs overnight/5 lbs in 1 week
Activity Restrictions/Additional Instructions:
Please call to make appointments for Phase II Cardiac Rehab:
[facility]
[address] [place] [address]
[phone]
Referrals:
CT Transitional Care Nurse [Outside]
Referral Note: The Cardiothoracic Transitional Care Nurse will call you to set up a visit in 1-2 days.
Ezra James MD [Active, Internal Medicine] - 03/12/25 12:45 pm
Referral Note: [place] office
UNKNOWN - PT NOT,INTERVIEWE [Family Provider]
Geovanna Barboza CRNP [Specified Professional Personl, Cardiac Surgery] - 03/10/25 1:00 pm
Prescriptions:
New
colchicine 0.6 mg Tablet
0.6 mg PO DAILY 30 Days Qty: 30 0RF
clopidogrel 75 mg Tablet
75 mg PO DAILY 365 Days Qty: 30 2RF
pantoprazole 40 mg Tablet,Delayed Release (Dr/Ec)
40 mg PO DAILY Qty: 30 2RF
oxycodone 5 mg Tablet
5 mg PO Q6HPRN PRN (Reason: moderate pain) 7 Days Qty: 28 0RF
aspirin 81 mg Tablet,Chewable
81 mg PO DAILY Qty: 30 0RF
acetaminophen 325 mg Tablet
650 mg PO Q4HPRN PRN (Reason: mild pain,headache,temp >101F ) Qty: 30 0RF
Continued
aspirin [Aspir-81] 81 mg Tablet,Delayed Release (Dr/Ec)
81 mg PO DAILY
amoxicillin 875 mg Tablet
500 mg PO TID
Patient Comments:
Dose is 500 mg TID per patient
metoprolol succinate 25 mg Tablet Extended Release 24 Hr
25 mg PO DAILY
rosuvastatin [Crestor] 40 mg Tablet
40 mg PO HS
fluticasone propionate 50 mcg/actuation [place],Suspension
50 mcg INTRANASAL DAILY
Discontinued
omeprazole 20 mg Capsule,Delayed Release(Dr/Ec)
20 mg PO DAILY
ibuprofen 100 mg Tablet
100 mg PO PRN PRN (Reason: pain)
Discharge Orders:
Discharge Patient (As Directed); Ordered 02/08/25
Ordered By: Triston Dumont
Care Plan Goals
Care Plan Goals:
Problem: Readiness for enhanced knowledge related to diagnosis and treatment plan
Goal: Understand your diagnosis and treatment plan needs, including medications if applicable.
Instructions: Know your diagnosis, underlying causes and treatment plan options, including medications if applicable. Consult with your health care team to learn about your diagnosis and treatment plan, including medications if applicable.
Discharge Date and Time
Print Language: BULGARIAN
--- NOTE | 2025-02-08 11:40 | PTCARENOTE ---
Pt transported to XRAY for 2-view & returned to unit. VSS. Pt denies dizziness. Independent in the room. Voiding +gas. No other acute changes from previous assessment.
--- NOTE | 2025-02-08 13:00 | PTCARENOTE ---
Discharge order received, pt's daughter at bedside. Pt assisted to shower, tolerated. PIV d/c. rn telehealth used for discharge instructions. All questions answered. Pt and daughter state understanding. Pt taken to car via wheelchair.
== END 2025-02-08 13:30 | disposition home or self-care (01) | DRG 220 ==
LOC: CVICU 05:09
PROVIDERS: Anesthesiology; ADMITTING PHYSICIAN Thoracic Surgery (Cardiothoracic Vascular Surgery); CONSULT PHYSICIAN Internal Medicine Critical Care Medicine
PROC: B24BZZ4 Ultrasonography of Heart with Aorta, Transesophageal (ICD-10-PCS; 2025-02-04)
PROC: 06BP4ZZ Excision of Right Saphenous Vein, Percutaneous Endoscopic Approach (ICD-10-PCS; 2025-02-04)
PROC: 02L70CK Occlusion of Left Atrial Appendage with Extraluminal Device, Open Approach (ICD-10-PCS; 2025-02-04)
PROC: 021009W Bypass Coronary Artery, One Artery from Aorta with Autologous Venous Tissue, Open Approach (ICD-10-PCS; 2025-02-04)
PROC: 02RF08Z Replacement of Aortic Valve with Zooplastic Tissue, Open Approach (ICD-10-PCS; 2025-02-04)
PROC: 5A1221Z Performance of Cardiac Output, Continuous (ICD-10-PCS; 2025-02-04)
DX: I35.0 Nonrheumatic aortic (valve) stenosis (principal); D62 Acute posthemorrhagic anemia; E87.20 Acidosis, unspecified; D68.8 Other specified coagulation defects; J98.11 Atelectasis; E87.1 Hypo-osmolality and hyponatremia; Q23.81 Bicuspid aortic valve; I25.118 Atherosclerotic heart disease of native coronary artery with other forms of angina pectoris; K21.9 Gastro-esophageal reflux disease without esophagitis; E78.5 Hyperlipidemia, unspecified; I10 Essential (primary) hypertension; M54.9 Dorsalgia, unspecified; G89.29 Other chronic pain; E55.9 Vitamin D deficiency, unspecified; M47.27 Other spondylosis with radiculopathy, lumbosacral region; I34.0 Nonrheumatic mitral (valve) insufficiency; I36.1 Nonrheumatic tricuspid (valve) insufficiency; E86.1 Hypovolemia; E87.70 Fluid overload, unspecified; G62.9 Polyneuropathy, unspecified; E66.811 Obesity, class 1; R73.03 Prediabetes; I77.810 Thoracic aortic ectasia; G43.909 Migraine, unspecified, not intractable, without status migrainosus; Z68.31 Body mass index [BMI] 31.0-31.9, adult; Z79.82 Long term (current) use of aspirin; Z79.899 Other long term (current) drug therapy; Z87.891 Personal history of nicotine dependence
CPT/HCPCS: 36415; 71045; 71046; 80048; 80053; 80076; 81003; 81015; 82248; 82330; 82565; 82805; 82810; 82947; 82962; 83036; 83605; 83735; 84132; 84302; 84520; 85014; 85018; 85025; 85027; 85049; 85610; 85730; 86803; 86850; 86900; 86901; 86920; 87070; 87086; 88305; 88311; 93005; 93312; 93320; 93325; 93880; 93923; 93930; 94002; J2597; J2916; P9045

== ENCOUNTER → 2025-02-24 14:56 | Outpatient (REF) | payer OTHER, SELFPAY | LOC: RAD 14:56 | PROVIDERS: ATTENDING PHYSICIAN Nurse Practitioner Acute Care | DX: Z95.1 Presence of aortocoronary bypass graft (principal); R06.02 Shortness of breath | CPT/HCPCS: 71046 ==